=== PATIENT | male | born 1940 | race Hispanic/Latino ===

== ENCOUNTER 2016-10-02 13:33 | Emergency (ER) | payer MEDICARE, BC ==
[2016-10-02 13:52] VITALS: O2SAT 96
[2016-10-02] MEDS ORDERED: Sodium Chloride 0.9% 1,000 ML IV SCH (14:30)
--- NOTE | 2016-10-02 14:33 | C.PDOC ---
History Of Present Illness 76 y/o male presents to the ED with complains of weakness, tiredness and difficulty walking. Pt states he got up this morning feeling normal, gait normal. After lunch, pt reports difficulty walking. Pt denies headache, vision changes or any other complaints. PMHx HIV since 1982, on HAART, low viral load, normal CD4. Denies narcotics nor heroine use/abuse. Time Seen by Provider: 10/02/16 14:19 Chief Complaint (Nursing): Weakness/Neurological Deficit History Per: Patient History/Exam Limitations: no limitations Onset/Duration Of Symptoms: Hrs Current Symptoms Are (Timing): Still Present Fall Associated With With Symptoms: No Severity: Mild Recent travel outside of the [place]: No Past Medical History Reviewed: Historical Data, Nursing Documentation, Vital Signs Vital Signs: Last Vital Signs Temp 97.5 F L 10/02/16 17:35 Pulse 83 10/02/16 17:35 Resp 18 10/02/16 17:35 BP 168/93 H 10/02/16 17:35 Pulse Ox 96 10/02/16 17:35 - Medical History PMH: HIV, TIA Family History: States: Unknown Family Hx - Social History Hx Tobacco Use: No Hx Alcohol Use: No Hx Substance Use: No - Immunization History Hx Tetanus Toxoid Vaccination: No Hx Influenza Vaccination: No Hx Pneumococcal Vaccination: No Review Of Systems Except As Marked, All Systems Reviewed And Found Negative. Constitutional: Positive for: Weakness, Other (tiredness; difficulty walking). Negative for: Fever Eyes: Negative for: Vision Change Neurological: Negative for: Headache Physical Exam - Physical Exam Appears: Non-toxic, No Acute Distress, Other (thin) Skin: Warm, Dry, No Rash Head: Atraumatic, Normacephalic, Other (bitemporal wasting) Eye(s): bilateral: PERRL, EOMI Oral Mucosa: Dry Neck: Normal ROM, Supple Chest: Symmetrical Cardiovascular: Rhythm Regular, No Murmur Respiratory: Normal Breath Sounds, No Rales, No Rhonchi, No Wheezing Gastrointestinal/Abdominal: Soft, No Tenderness, Other (suprapubic tube in place , clean, intact) Extremity: Bilateral: Atraumatic Neurological/Psych: Other (confused, difficulty recalling days, events, doctor' s and medications) ED Course And Treatment - Laboratory Results Result Diagrams: 10/02/16 14:57 10/02/16 14:57 Lab Interpretation: Normal O2 Sat by Pulse Oximetry: 96 (on room air) Pulse Ox Interpretation: Normal - Radiology CXR: Interpreted by Me CXR Interpretation: Yes: No Acute Disease - Other Rad CXR X-Ray: Viewed By Me, Read By Radiologist Interpretation: ADDENDUM: Additionally, please note left apical pleural thickening. [ Addendum Report Added by Lilia Nichols MD at 10/02/2016 16:30:12 ]. HISTORY: lethargy, h/o HIV. COMPARISON: Chest x-ray performed 05/07. TECHNIQUE: Chest, one view. FINDINGS: LUNGS: Mild interstitial prominence with lower lobe predominance may be chronic ; superimposed infection cannot be excluded. Please note that chest x-ray has limited sensitivity for the detection of pulmonary masses. PLEURA: No significant pleural effusion identified. No definite pneumothorax . CARDIOVASCULAR: Enlargement of the cardiomediastinal silhouette. Ectatic aorta. Atherosclerotic calcifications. OSSEOUS STRUCTURES: Degenerative changes. VISUALIZED UPPER ABDOMEN: Unremarkable. OTHER FINDINGS: None. IMPRESSION: Mild interstitial prominence with lower lobe predominance may be chronic ; superimposed infection cannot be excluded. Correlate clinically. Enlargement of the cardiomediastinal silhouette. Ectatic aorta. Atherosclerotic calcifications. - CT Scan/US CT head Other Rad Studies (CT/US): Read By Radiologist, Radiology Report Reviewed CT/US Interpretation: FINDINGS: HEMORRHAGE: No intracranial hemorrhage. BRAIN : Diffuse atrophy with prominence of the ventricles and sulci noted. No mass effect or edema. Moderate scattered periventricular and subcortical white matter hypodensities, which are nonspecific, but often seen with chronic microvascular ischemic disease. Please note that MRI with diffusion imaging is more sensitive in the detection of acute ischemic event. VENTRICLES: No hydrocephalus. CALVARIUM: Unremarkable. PARANASAL SINUSES: Unremarkable as visualized. No significant inflammatory changes. MASTOID AIR CELLS: Unremarkable as visualized. No inflammatory changes. OTHER FINDINGS: None. IMPRESSION: Moderate nonspecific white matter changes as above. Provided history indicates concern for malignant neoplasm ; recommend MRI without and with IV contrast for further evaluation. Progress Note: refused EKG for ?? reason Reevaluation Time: 18:23 Reassessment Condition: Improved (able to stand alone and dress self) Medical Decision Making Medical Decision Making: Plan: CT head, CXR EKG, labs, UA suspect narcotics use vs chronic lethargy w/u neg offered Obs but pt adamantly declined Disposition Doctor Will See Patient In The: Office Counseled Patient/Family Regarding: Studies Performed, Diagnosis - Disposition Disposition: HOME/ ROUTINE Disposition Time: 18:24 Condition: GOOD - Clinical Impression Clinical Impression: Muscle weakness - Scribe Statement The provider has reviewed the documentation as recorded by the Nancy Addison Provider Attestation: All medical record entries made by the Nancy were at my direction and personally dictated by me. I have reviewed the chart and agree that the record accurately reflects my personal performance of the history, physical exam, medical decision making, and the department course for this patient. I have also personally directed, reviewed, and agree with the discharge instructions and disposition.
[2016-10-02 15:03] LABS: BASO % 0.4 % (0.0-2.0); EOS # 0.1 K/uL (0.0-0.7); EOS % 0.7 % (0.0-4.0); HEMATOCRIT 37.7 % (35.0-51.0); LYMPH # 2.4 K/uL (1.0-4.3); LYMPH % 27.1 % (20.0-40.0); MEAN CELL VOLUME 92.3 fL (80.0-94.0); MEAN CORPUSCULAR HEMOGLOBIN 30.4 pg (27.0-31.0); MEAN PLATELET VOLUME 8.8 fL (7.2-11.7); MONO # 0.8 K/uL (0.0-0.8); MONO % 9.2 % (0.0-10.0); RED CELL DISTRIBUTION WIDTH 17.1 % (11.5-14.5); WHITE BLOOD COUNT 8.9 K/uL (4.8-10.8)
[2016-10-02 15:11] LABS: INR 1.4
[2016-10-02 15:12] LABS: CHLORIDE 101 mmol/L (98-107); SODIUM 140 mmol/L (132-148)
[2016-10-02 15:14] LABS: CHOLESTEROL 160 mg/dL (0-199)
[2016-10-02 15:15] LABS: ALKALINE PHOSPHATASE 93 U/L (38-126); ALT/SGPT 21 U/L (21-72); AST/SGOT 62 U/L (17-59); BILIRUBIN,TOTAL 0.4 mg/dL (0.2-1.3); BLOOD UREA NITROGEN 14 mg/dL (9-20); CALCIUM 8.7 mg/dl (8.6-10.4); CARBON DIOXIDE 23 mmol/L (22-30); GFR AFRICAN-AMERICAN > 60; GLUCOSE,RANDOM 124 mg/dL (75-110)
--- NOTE | 2016-10-02 15:22 | CT ---
PROCEDURE: CT HEAD WITHOUT CONTRAST. HISTORY: gait abn, HIV, ? CA. COMPARISON: Brain MRI without contrast performed 05/23/13, noncontrast head CT performed 05/22/13 TECHNIQUE: Axial computed tomography images were obtained through the head/brain without intravenous contrast. Radiation dose: Total exam DLP = 1236.91 mGy-cm. This CT exam was performed using one or more of the following dose reduction techniques: Automated exposure control, adjustment of the mA and/or kV according to patient size, and/or use of iterative reconstruction technique. FINDINGS: HEMORRHAGE: No intracranial hemorrhage. BRAIN: Diffuse atrophy with prominence of the ventricles and sulci noted. No mass effect or edema. Moderate scattered periventricular and subcortical white matter hypodensities, which are nonspecific, but often seen with chronic microvascular ischemic disease. Please note that MRI with diffusion imaging is more sensitive in the detection of acute ischemic event. VENTRICLES: No hydrocephalus. CALVARIUM: Unremarkable. PARANASAL SINUSES: Unremarkable as visualized. No significant inflammatory changes. MASTOID AIR CELLS: Unremarkable as visualized. No inflammatory changes. OTHER FINDINGS: None. IMPRESSION: Moderate nonspecific white matter changes as above. Provided history indicates concern for malignant neoplasm ; recommend MRI without and with IV contrast for further evaluation.
[2016-10-02] MEDS ORDERED: Sodium Chloride 0.9% 1,000 ML ONE (15:30)
--- NOTE | 2016-10-02 16:30 | RAD ---
HISTORY: lethargy, h/o HIV COMPARISON: Chest x-ray performed 09/01/13 TECHNIQUE: Chest, one view. FINDINGS: LUNGS: Mild interstitial prominence with lower lobe predominance may be chronic ; superimposed infection cannot be excluded. Please note that chest x-ray has limited sensitivity for the detection of pulmonary masses. PLEURA: No significant pleural effusion identified. No definite pneumothorax . CARDIOVASCULAR: Enlargement of the cardiomediastinal silhouette. Ectatic aorta. Atherosclerotic calcifications. OSSEOUS STRUCTURES: Degenerative changes. VISUALIZED UPPER ABDOMEN: Unremarkable. OTHER FINDINGS: None. IMPRESSION: Mild interstitial prominence with lower lobe predominance may be chronic ; superimposed infection cannot be excluded. Correlate clinically. Enlargement of the cardiomediastinal silhouette. Ectatic aorta. Atherosclerotic calcifications.
[2016-10-02 17:36] VITALS: BP 168/93; PULSE 83; RESP 18; TEMP 97.5
== END 2016-10-02 18:39 | disposition home or self-care (01) ==
LOC: C.ER 13:33
DX: M62.81 Muscle weakness (generalized) (principal)
CPT/HCPCS: 70450; 71010; 80053; 80061; 83036; 84484; 85025; 85610; 85730; 96360; 96361; 99285; J7040

== ENCOUNTER 2016-11-01 17:24 | Emergency (ER) | payer MEDICARE, BC ==
[2016-11-01 17:43] VITALS: BMI 17.3
[2016-11-01] MEDS ORDERED: Sodium Chloride 0.9% 1,000 ML IV ONE (17:49)
[2016-11-01] MEDS ORDERED: Sodium Chloride 0.9% 1,000 ML ONE (18:08)
--- NOTE | 2016-11-01 18:13 | C.PDOC ---
History Of Present Illness A 76 y/o male comes in the ER c/o suprapubic tenderness and dysuria for 3 days. Pt notes that he had a suprapubic catheter placed by Dr. Smith is chronic indwelling. Pt urinating normally via his penis without difficulty. Pt was instructed by Dr. Smith to come to the ER for cath removal since Dr. Acharya is out of town. Pt denies fever, chills, nausea, vomiting, diarrhea, hematuria, or any other complaints. Time Seen by Provider: 11/01/16 17:44 Chief Complaint (Nursing): Male Genitourinary History Per: Patient History/Exam Limitations: no limitations Onset/Duration Of Symptoms: Days Current Symptoms Are (Timing): Still Present Severity: Mild Associated Symptoms: Urinary Symptoms (Dysuria) Additional History Per: Patient Past Medical History Reviewed: Historical Data, Nursing Documentation, Vital Signs Vital Signs: Last Vital Signs Temp 97.5 F L 11/01/16 17:43 Pulse 65 11/01/16 17:43 Resp 17 11/01/16 17:43 BP 197/79 H 11/01/16 17:43 Pulse Ox 99 11/01/16 19:30 - Medical History PMH: Dementia, HIV, TIA Family History: States: Unknown Family Hx - Social History Hx Tobacco Use: No Hx Alcohol Use: No Hx Substance Use: Yes - Immunization History Hx Tetanus Toxoid Vaccination: No Hx Influenza Vaccination: No Hx Pneumococcal Vaccination: No Review Of Systems Except As Marked, All Systems Reviewed And Found Negative. Constitutional: Negative for: Fever, Chills Gastrointestinal: Positive for: Abdominal Pain (Suprapubic pain and tenderness) . Negative for: Nausea, Vomiting, Diarrhea Genitourinary: Positive for: Dysuria. Negative for: Hematuria Physical Exam - Physical Exam Appears: Non-toxic, No Acute Distress Skin: Warm, Dry Head: Atraumatic, Normacephalic Eye(s): bilateral: Normal Inspection, EOMI Cardiovascular: Rhythm Regular, No Murmur Respiratory: Normal Breath Sounds, No Accessory Muscle Use, No Rales, No Rhonchi , No Wheezing Gastrointestinal/Abdominal: Soft, Tenderness (Suprapubic tenderness ), No Guarding, No Rebound, No Other (Npo fullness) Male Genital: Other (Foul smelling urine) Neurological/Psych: Oriented x3, Normal Speech, Normal Cognition, Normal Motor, No Other (No focal deficit) ED Course And Treatment - Laboratory Results Result Diagrams: 11/01/16 18:24 11/01/16 18:24 Lab Interpretation: Abnormal (UA 326 WBC's) ECG Rhythm: Sinus Rhythm (Normal) ECG Interpretation: Normal Rate From EC O2 Sat by Pulse Oximetry: 99 (RA) Pulse Ox Interpretation: Normal - Radiology CXR: Interpreted by Me CXR Interpretation: Yes: No Acute Disease - Other Rad abd x 2 X-Ray: Interpreted by Me (moderate stool, suprapubic tube in place.) Reevaluation Time: 19:29 Reassessment Condition: Improved Medical Decision Making Medical Decision Making: Impression: 76 y/o c/o suprapubic tenderness and urination pain for 3 days Plans: -EKG -Blood labs -XRay Abd/Pel -Toradol -IV fluids -UA -Reassess and disposition Patient is resting comfortably, abdomen remains soft, and patient is tolerating PO. Patient feels comfortable going home. Patient will be discharged home. 1930: mild UTI, suprapubic cath removed- well tolerated. Started on Keflex- ok to d/c home. Disposition Doctor Will See Patient In The: Office Counseled Patient/Family Regarding: Studies Performed, Diagnosis - Disposition Disposition: HOME/ ROUTINE Disposition Time: 19:30 Condition: GOOD Additional Instructions: Continue Keflex 500 mg twice a day for 7 days Follow-up with Dr. Acharya for re-evaluation when he returns. Prescriptions: Cephalexin [cephalexin] 500 mg PO Q12H #13 cap Instructions: Urinary Tract Infection in Men (ED) - Clinical Impression Clinical Impression: UTI (urinary tract infection), Chronic suprapubic catheter - Scribe Statement The provider has reviewed the documentation as recorded by the Scribe Phuong [email or web address] All medical record entries made by the Scribe were at my direction and personally dictated by me. I have reviewed the chart and agree that the record accurately reflects my personal performance of the history, physical exam, medical decision making, and the department course for this patient. I have also personally directed, reviewed, and agree with the discharge instructions and disposition.
[2016-11-01 18:15] LABS: RBC URINE 13 /hpf (0-3); TRANSITIONAL EPITHIAL < 1 /hpf (0-3); URINE BACTERIA MANY (<OCC); URINE BILIRUBIN NEGATIVE (NEGATIVE); URINE BLOOD 1+ (NEGATIVE); URINE COLOR Yellow (YELLOW); URINE GLUCOSE (UA) NORMAL (Normal); URINE KETONE NEGATIVE (NEGATIVE); URINE LEUKOCYTE ESTERASE 3+ Leu/uL (Negative); URINE PROTEIN 2+ mg/dL (NEGATIVE); URINE UROBILINOGEN NORMAL mg/dL (0.2-1.0); WBC URINE 326 /hpf (0-5)
[2016-11-01 18:28] LABS: BASO % 0.4 % (0.0-2.0); EOS % 0.5 % (0.0-4.0); HEMATOCRIT 43.8 % (35.0-51.0); LYMPH # 2.3 K/uL (1.0-4.3); LYMPH % 26.4 % (20.0-40.0); MEAN CELL VOLUME 92.8 fL (80.0-94.0); MEAN CORPUSCULAR HEMOGLOBIN 30.5 pg (27.0-31.0); MEAN CORPUSCULAR HGB CONC 32.8 g/dL (33.0-37.0); MEAN PLATELET VOLUME 8.9 fL (7.2-11.7); MONO # 0.7 K/uL (0.0-0.8); RED CELL DISTRIBUTION WIDTH 17.4 % (11.5-14.5); WHITE BLOOD COUNT 8.7 K/uL (4.8-10.8)
[2016-11-01 18:36] LABS: CHLORIDE 101 mmol/L (98-107)
[2016-11-01 18:37] LABS: POTASSIUM 3.9 mmol/L (3.6-5.2); SODIUM 138 mmol/L (132-148)
[2016-11-01 18:39] LABS: AST/SGOT 58 U/L (17-59); BILIRUBIN,TOTAL 0.7 mg/dL (0.2-1.3); CARBON DIOXIDE 26 mmol/L (22-30); GFR AFRICAN-AMERICAN > 60; TOTAL PROTEIN 7.7 g/dL (6.3-8.3)
[2016-11-01 18:40] LABS: ALKALINE PHOSPHATASE 112 U/L (38-126); ALT/SGPT 31 U/L (21-72); BLOOD UREA NITROGEN 18 mg/dL (9-20); GLUCOSE,RANDOM 106 mg/dL (75-110)
[2016-11-01] MEDS ORDERED: Bacitracin 500 Units/gm Oint Foilpak UD ONE (19:24)
[2016-11-01 19:55] VITALS: BP 185/89; PULSE 60; RESP 16; TEMP 97.7; O2SAT 97
--- NOTE | 2016-11-02 07:28 | RAD ---
PROCEDURE: Radiographs of the chest and abdomen (obstructive series) HISTORY: abd pain COMPARISON: No prior. TECHNIQUE: AP radiograph of the chest, with upright and supine radiographs of the abdomen. FINDINGS: CHEST: Lungs: No evidence of acute pulmonary disease. Cardiovascular: Prominent size heart. Pleura: No pleural fluid. No pneumothorax. Other findings: None. ABDOMEN AND PELVIS: Bowel: Unremarkable bowel gas pattern. No evidence of mechanical obstruction. Free air: None. Bones: Unremarkable. Other findings: There is suprapubic tube in place. IMPRESSION: Unremarkable radiographs of chest and abdomen. [id number] constipation. No evidence of mechanical bowel obstruction.
--- NOTE | 2016-11-05 10:07 | CARD ---
APPROVED REPORT EKG Measurement Heart [id number] <Conclusion> Normal sinus rhythm Left axis deviation Voltage criteria for left ventricular hypertrophy Abnormal ECG
== END 2016-11-01 20:00 | disposition home or self-care (01) ==
LOC: C.ER 17:24
DX: N39.0 Urinary tract infection, site not specified (principal)
CPT/HCPCS: 74022; 80053; 81001; 83690; 84484; 85025; 87086; 87181; 96361; 96374; 99285; J1885; J7040

== ENCOUNTER 2016-11-02 14:28 | Inpatient (IN) | payer MEDICARE, BC ==
[2016-11-02 14:40] VITALS: BMI 24.3
[2016-11-02] MEDS ORDERED: Cefepime 1 GM in Sodium Chloride 0.9% 50 ML IVPB ONE (14:42)
[2016-11-02] MEDS ORDERED: Moxifloxacin IV 400mg/250ml NS 400 MG/250 ML BAG IV ONE (14:43)
[2016-11-02] MEDS ORDERED: Cefepime 1 GM in Sodium Chloride 0.9% 100 ML IVPB ONE (15:00)
--- NOTE | 2016-11-02 15:04 | C.PDOC ---
History Of Present Illness Patient BIBA for evaluation of being "unresponsive" with difficulty breathing. As per paramedics, patient was breathing shallowly and vomiting, they were concerned for airway protection, intubated him in the field - Rocuronium, Ketamine, Versed given. Patient seen in ED yesterday, diagnosed with mild UTI and discharged home with antibiotics. He has h/o HIV, dementia, TIA. Time Seen by Provider: 11/02/16 14:36 History Per: EMS History/Exam Limitations: clinical condition Onset/Duration Of Symptoms: Other (prior to arrival ) Current Symptoms Are (Timing): Still Present Severity: Severe Past Medical History Reviewed: Historical Data, Nursing Documentation, Vital Signs Vital Signs: Last Vital Signs Temp 99.8 F H 11/03/16 07:30 Pulse 127 H 11/03/16 12:00 Resp 20 11/03/16 12:00 BP 111/76 11/03/16 11:45 Pulse Ox 99 11/03/16 12:00 - Medical History PMH: Dementia, HIV, TIA Family History: States: Other Other Family History: noncontributory - Social History Hx Tobacco Use: No Hx Alcohol Use: No Hx Substance Use: Yes - Immunization History Hx Tetanus Toxoid Vaccination: No Hx Influenza Vaccination: No Hx Pneumococcal Vaccination: No Review Of Systems Review Of Systems: ROS cannot be obtained secondary to pt's inabilty to answer questions. Physical Exam - Physical Exam Appears: Chronically Ill, Other (cachectic) Skin: Dry, Mottled, Other (cool extremities) Head: Atraumatic Eye(s): bilateral: Other (pupils fixed at approx 2-3 mm) Oral Mucosa: Dry, Other (ET tube 8/[address], 23mm at lip) Cardiovascular: Rhythm Regular (tachycardic ) Respiratory: No Rales, No Rhonchi, No Wheezing, Other (assisted ventilations, equal breath sounds B/L) Gastrointestinal/Abdominal: Normal Exam, Bowel Sounds, Soft, No Tenderness, Other (suprapubic catheter stoma without discharge/erythema) Rectal: Other (healed sacral decubitus ulcer) ED Course And Treatment - Laboratory Results Result Diagrams: 11/03/16 04:16 11/03/16 05:28 ECG: Interpreted By Me, Viewed By Me ECG Rhythm: Sinus Tachycardia ECG Interpretation: Abnormal O2 Sat by Pulse Oximetry: 99 (FiO2 100%) Pulse Ox Interpretation: Normal - Radiology CXR: Interpreted by Me, Viewed By Me (ET tube in place, OG tube below diaphragm , no infiltrates) Progress Note: Blood work, CXR, EKG, UA ordered and reviewed. Patient given IV NS bolus, broad spectrum antibiotics. Code sepsis called. After two large IV boluses (+ bolus in the field), patient continues to be hypotensive. Central line attempt made by me, right groin - unsuccessful. Dr. Segovia able to insert left femoral central line, assisted by me. 2 amp bicarb given and levophed drip started. . Family in ED (sister and brother), and aware of patient's critical condition. Sister states he takes/is compliant with HAART meds, but recently has been taking them only once per day due to "difficulty sleeping". Dr. Booker spoken with and came to ED to see patient. - Physician Consult Information Physician Contacted: Max Boykin Outcome Of Conversation: Spoke with Dr. Nubia Boykin (admits for Jhony), he agrees with ICU admission for septic shock. Pending call back from Dr. Booker for ID. Dr. Goldie Smith is urology. Critical Care Time - Critical Care Note Total Time (in mins): 50 Documented critical care: time excludes all time spent performing seperately billable procedures. Disposition - Disposition Disposition: HOSPITALIZED Disposition Time: 17:05 Condition: CRITICAL - Clinical Impression Clinical Impression: Septic shock, UTI (urinary tract infection), Acidosis Decision To Admit - Pt Status Changed To: Hospital Disposition Of: Inpatient - Admit Certification Admit to Inpatient:: After my assessment, the patient will require hospitalization for at least two midnights. This is because of the severity of symptoms shown, intensity of services needed, and/or the medical risk in this patient being treated as an outpatient. - InPatient: Physician Admission Certification: I certify that this patient requires 2 or more midnights of care for the following reason:: see notes - . Bed Request Type: ICU Admitting Physician: Max Boykin Patient Diagnosis: Septic shock, UTI (urinary tract infection), Acidosis
[2016-11-02] MEDS ORDERED: Moxifloxacin IV 400mg/250ml NS 400 MG/250 ML BAG IVPB ONE (15:28)
[2016-11-02 15:31] LABS: BASO % 0.2 % (0.0-2.0); EOS % 0.1 % (0.0-4.0); LYMPH # 2.7 K/uL (1.0-4.3); MEAN CORPUSCULAR HEMOGLOBIN 29.9 pg (27.0-31.0); MEAN PLATELET VOLUME 9.1 fL (7.2-11.7); MONO # 1.3 K/uL (0.0-0.8); MONO % 8.8 % (0.0-10.0); NRBC % 0.3 % (0.0-2.0); RED CELL DISTRIBUTION WIDTH 18.4 % (11.5-14.5)
[2016-11-02 15:44] LABS: MEAN CELL VOLUME 96.5 fL (80.0-94.0); WHITE BLOOD COUNT 15.2 K/uL (4.8-10.8)
[2016-11-02 15:45] LABS: RBC URINE 25 /hpf (0-3); URINE BILIRUBIN NEGATIVE (NEGATIVE); URINE BLOOD 1+ (NEGATIVE); URINE COLOR Amber (YELLOW); URINE GLUCOSE (UA) NORMAL (Normal); URINE KETONE NEGATIVE (NEGATIVE); URINE LEUKOCYTE ESTERASE 2+ Leu/uL (Negative); URINE PROTEIN 2+ mg/dL (NEGATIVE); WBC CLUMPS MANY /hpf; WBC URINE 861 /hpf (0-5)
[2016-11-02 15:50] LABS: POTASSIUM 4.3 mmol/L (3.6-5.2)
[2016-11-02 15:51] LABS: INR 1.8
[2016-11-02 15:52] LABS: ALB/GLOB RATIO 0.8 (1.0-2.1); BILIRUBIN,TOTAL 0.8 mg/dL (0.2-1.3); TOTAL PROTEIN 5.4 g/dL (6.3-8.3)
[2016-11-02 15:53] LABS: CALCIUM 7.1 mg/dl (8.6-10.4); MAGNESIUM 2.5 mg/dL (1.6-2.3); PHOSPHOROUS 8.2 mg/dL (2.5-4.5)
--- NOTE | 2016-11-02 16:01 | RAD ---
HISTORY: Sepsis Patient COMPARISON: Comparison is made to the previous study dated 10/02/2016 FINDINGS: LUNGS: Patient status post intubation. The ET tube is seen at appropriate position. No significant interval change in the lungs noted since the previous exam. PLEURA: No significant pleural effusion identified, no pneumothorax apparent. CARDIOVASCULAR: Normal. OSSEOUS STRUCTURES: No significant abnormalities. VISUALIZED UPPER ABDOMEN: Normal. OTHER FINDINGS: None. IMPRESSION: Appropriate position of the a and NG tube. No significant interval change in the lungs since the previous study.
--- NOTE | 2016-11-02 16:07 | CP.PCM.CON ---
<Erik Morgan - Last Filed: 11/02/16 19:16> History of Present Illness - History of Present Illness History of Present Illness: HPI: Patient is a 76 y/o male, with PMHx of indwelling suprapubic cather, HIV, dementia, and TIA. Patient BIBA for evaluation of being "unresponsive" with difficulty breathing. EMS notes state his sister called 911 because pt was not responding to her. As per paramedics, patient was breathing shallowly and vomiting, they were concerned for airway protection. Pt was intubated in the field. Patient seen in ED yesterday, diagnosed with mild UTI and discharged home with antibiotics. ROS unavailable so information was provided by the family. Family is reporting the suprapubic catheter has been in "since June" and was not removed until yesterday in the ED. PMHx: see above PSHx: Cholecystectomy, TURP (2014), Suprapubic catheter placement (June 2016) Allergies: NKDA Fam Hx: unknown Review of Systems - Review of Systems Systems not reviewed;Unavailable: Intubated Past Patient History - Past Social History Smoking Status: Heavy Smoker > 10 Cigarettes Daily - NEUROLOGICAL Hx Dementia: Yes Hx Transient Ischemic Attacks (TIA): Yes - HEMATOLOGICAL/ONCOLOGICAL Hx Human Immunodeficiency Virus (HIV): Yes - GENITOURINARY/GYNECOLOGICAL Hx Genitourinary Disorders: Yes (SEE COMMENT) Hx Prostate Problems: Yes (SUPRPUBIC DEWITT) - PSYCHIATRIC Hx Substance Use: Yes - ANESTHESIA Hx Anesthesia: No Hx Anesthesia Reactions: No Meds Allergies/Adverse Reactions: Allergies Allergy/AdvReac Type Severity Reaction Status Date / Time No Known Allergies Allergy Verified 11/01/16 17:42 - Medications Medications: Current Medications Vancomycin HCl (Vancomycin 1gm In Normal Saline Addvantage) 250 mls @ 166.667 mls/hr IV STAT STA Stop: 11/02/16 16:11 Sodium Chloride 2,100 ml/ IV (SUPPLIES) 2,100 mls @ 4,354.5 mls/hr IV ONCE ONE PRN Reason: 60 ML/KG/HR Stop: 11/02/16 16:20 Physical Exam - Constitutional Appears: Chronically Ill - Head Exam Head Exam: ATRAUMATIC, NORMAL INSPECTION - Eye Exam Eye Exam: EOMI Pupil Exam: PERRL - ENT Exam ENT Exam: Mucous Membranes Dry Additional comments: ET tube placed - Respiratory Exam Respiratory Exam: NORMAL BREATHING PATTERN. absent: Clear to Auscultation Bilateral - Cardiovascular Exam Cardiovascular Exam: Tachycardia - GI/Abdominal Exam GI & Abdominal Exam: Normal Bowel Sounds, Soft - Extremities Exam Extremities exam: Positive for: normal inspection, pedal pulses present Additional comments: mottling of feet noted - Neurological Exam Neurological exam: Altered - Skin Skin Exam: Dry Additional comments: mottling of feet Results - Vital Signs Recent Vital Signs: Last Vital Signs Temp 101.0 F H 11/02/16 14:48 Pulse 101 H 11/02/16 15:57 Resp 15 11/02/16 15:57 BP 76/46 L 11/02/16 15:57 Pulse Ox 100 11/02/16 15:57 - Labs Result Diagrams: 11/02/16 15:28 11/02/16 15:28 Labs: Laboratory Results - last 24 hr 11/02/16 11/02/16 11/02/16 15:28 15:28 15:28 WBC 15.2 H D RBC 3.94 L Hgb 11.8 L D Hct 38.0 MCV 96.5 H D MCH 29.9 MCHC 31.0 L RDW 18.4 H Plt Count 292 MPV 9.1 Neut % (Auto) 72.9 Lymph % (Auto) 18.0 L [place] % (Auto) 8.8 Eos % (Auto) 0.1 Baso % (Auto) 0.2 Neut # 11.1 H Lymph # 2.7 [place] # 1.3 H Eos # 0.0 Baso # 0.0 PT 20.9 H INR 1.8 APTT 31 Sodium 143 Potassium 4.3 Chloride 111 H Carbon Dioxide 15 L Anion Gap 21 H BUN 28 H Creatinine 2.0 H Est GFR ( Amer) 40 Est GFR (Non-Af Amer) 33 Random Glucose 114 H Calcium 7.1 L Phosphorus 8.2 H Magnesium 2.5 H Total Bilirubin 0.8 AST 259 H D ALT 166 H D Alkaline Phosphatase 83 Total Protein 5.4 L Albumin 2.4 L D Globulin 3.0 Albumin/Globulin Ratio 0.8 L Urine Color Urine Clarity Urine pH Ur Specific [place] Urine Protein Urine Glucose (UA) Urine Ketones Urine Blood Urine Nitrate Urine Bilirubin Urine Urobilinogen Ur Leukocyte Esterase Urine WBC (Auto) Urine RBC (Auto) Urine WBC Clumps (Auto) Ur Squamous Epith Cells 11/02/16 15:28 WBC RBC Hgb Hct MCV MCH MCHC RDW Plt Count MPV Neut % (Auto) Lymph % (Auto) [place] % (Auto) Eos % (Auto) Baso % (Auto) Neut # Lymph # [place] # Eos # Baso # PT INR APTT Sodium Potassium Chloride Carbon Dioxide Anion Gap BUN Creatinine Est GFR ( Amer) Est GFR (Non-Af Amer) Random Glucose Calcium Phosphorus Magnesium Total Bilirubin AST ALT Alkaline Phosphatase Total Protein Albumin Globulin Albumin/Globulin Ratio Urine Color [place] Urine Clarity Hazy Urine pH 6.0 Ur Specific [place] 1.011 Urine Protein 2+ H Urine Glucose (UA) Normal Urine Ketones Negative Urine Blood 1+ H Urine Nitrate Positive H Urine Bilirubin Negative Urine Urobilinogen 4.0 Ur Leukocyte Esterase 2+ H Urine WBC (Auto) 861 H Urine RBC (Auto) 25 H Urine WBC Clumps (Auto) Many H Ur Squamous Epith Cells 4 Assessment & Plan - Assessment and Plan (Free Text) Assessment: Patient is a 76 year male, with PMHx of indwelling suprapubic catheter, HIV, dementia, TIA, who was BIBA for acute respiratory failure. He was intubated in the field. Plan: Neuro: Pt intubated Hx of dementia - Aricept 10mg PO HS Hx of seizure disorder Cardio: Hypotension BP 76/46 on admission Levophed 10 mcg/min 4L NS given in ED Pulm: Pt intubated Vent settings: TV 500, PEEP 5, FiO2 70%, RR 20 CXR (11/02/16): No pleural effusion. No pneumothorax. (see full report). ABG (11/02/16): 6.9 pH - 2 amps of bicarb given GI: NPO Transaminitis AST/ALT 259/166, Alk Phos: 83 Albumin 2.4 /Renal: Hx of indwelling catheter - for hx of BPH - Tamsulosin 0.4mg PO daily UA (11/02/16): LE 2+, Nitrate Positive, Protein 2+, WBC 861, Sq Ep 4 Urine Cx (11/01/16): Gram negative Rogelio - pt seen in ED on 11/01 for UTI, given Cephalexin 500mg PO Q12H Nephro: Dehydration BUN/Cr: 28/2 4L NS Monitor I/Os Heme: Hx of HIV Normal CD4 the last time pt saw Dr. Booker 6 months ago Home meds: cd8 Abacavir-Lamivudine 600/300 PO Daily, Raltegravir 400mg PO BID f/u CD4, CD8 level ID: Septic Shock (Criteria: Tachycardic, Tachypneic, WBC > 16, - believed secondary to UTI ID: Dr. Booker, help appreciated WBC 15.2, no left shift or bands Lactate 4.9 - f/u VBG Merrem 1gm Q12H Cefepime 1 gm IV ONCE Avelox 400mg IV once Vancomycin 1 gm IV once NS x 4L f/u blood culture, urine culture Prophylaxis: DVT: SCDs, GI:Protonix 40mg IV Daily <Samir Segovia P - Last Filed: 11/02/16 21:39> Meds - Medications Medications: Current Medications Norepinephrine Bitartrate 8 mg (/ Sodium Chloride) 258 mls @ 19.35 mls/hr IV .[id number] PRN; Protocol; 10 MCG/MIN PRN Reason: TITRATE PER MD ORDER Last Titration: 11/02/16 18:47 Dose: 9 mcg/min, 17.41 mls/hr Meropenem 1 gm/ Sodium (Chloride) 100 mls @ 100 mls/hr IVPB Q12H TRACEY Last Admin: 11/02/16 20:19 Dose: 100 mls/hr Sodium Bicarbonate 150 meq/ (Dextrose) 1,150 mls @ 200 mls/hr IV .[id number] TRACEY Last Admin: 11/02/16 21:14 Dose: 200 mls/hr Pantoprazole Sodium (Protonix Inj) 40 mg IVP DAILY TRACEY Results - Vital Signs Recent Vital Signs: Last Vital Signs Temp 93.8 F L 11/02/16 18:30 Pulse 100 H 11/02/16 19:50 Resp 20 11/02/16 19:50 BP 113/74 11/02/16 19:31 Pulse Ox 100 11/02/16 19:50 - Labs Result Diagrams: 11/02/16 15:28 11/02/16 20:22 Labs: Laboratory Results - last 24 hr 11/02/16 11/02/16 11/02/16 17:44 18:18 20:18 pO2 51 42 VBG pH 6.92 L* < 6.80 L* VBG pCO2 55 76 H* VBG HCO3 7.0 VBG Total CO2 13.0 L VBG O2 Sat (Calc) 72.0 H 53.7 VBG Base Excess -21.5 L VBG Potassium 3.8 6.0 H Sodium 146.0 144.0 Chloride 121.0 H 110.0 H Glucose 88 118 H Lactate 7.6 H* 12.6 H* Crit Value Called To Er nurse gemma smyth Icu nurse sophia Crit Value Called By Carleen rt Carleen rt Crit Value Read Back Y Y Blood Gas Notified Time 1747 2023 Potassium Carbon Dioxide Anion Gap BUN Creatinine Est GFR ( Amer) Est GFR (Non-Af Amer) Random Glucose Calcium Phosphorus Magnesium Total Bilirubin AST ALT Alkaline Phosphatase Total Creatine Kinase Troponin I Total Protein Albumin Globulin Albumin/Globulin Ratio Venous Blood Potassium 3.8 6.0 H Urine Opiates Screen Negative Urine Methadone Screen Negative Ur Barbiturates Screen Negative Ur Phencyclidine Scrn Negative Ur Amphetamines Screen Negative U Benzodiazepines Scrn Positive U Oth Cocaine Metabols Negative U Cannabinoids Screen Negative 11/02/16 20:22 pO2 VBG pH VBG pCO2 VBG HCO3 VBG Total CO2 VBG O2 Sat (Calc) VBG Base Excess VBG Potassium Sodium 142 Chloride 109 H Glucose Lactate Crit Value Called To Crit Value Called By Crit Value Read Back Blood Gas Notified Time Potassium 5.5 H Carbon Dioxide 13 L Anion Gap 26 H BUN 28 H Creatinine 2.4 H Est GFR ( Amer) 32 Est GFR (Non-Af Amer) 26 Random Glucose 116 H Calcium 7.1 L Phosphorus 11.8 H Magnesium 2.9 H Total Bilirubin 1.0 AST 634 H D ALT 500 H D Alkaline Phosphatase 82 Total Creatine Kinase 2077 H Troponin I 23.4000 H* Total Protein 5.2 L Albumin 2.4 L Globulin 2.8 Albumin/Globulin Ratio 0.8 L Venous Blood Potassium Urine Opiates Screen Urine Methadone Screen Ur Barbiturates Screen Ur Phencyclidine Scrn Ur Amphetamines Screen U Benzodiazepines Scrn U Oth Cocaine Metabols U Cannabinoids Screen Attending/Attestation - Attestation I have personally seen and examined this patient.: Yes I have fully participated in the care of the patient.: Yes I have reviewed all pertinent clinical information: Yes Notes (Text): 11/02/16 21:29 Patient was evaluated with the resident, h/o HIV+ on meds, dementia, urinary retention, suprapubic dewitt removed yesterday, brought in intubated at home, with ketamin and paralyzing agent, unresponsive, hypotension, febrile, ph 6.9, maintained po2, abnormal urine, elevated creat. Assisted Dr. Burrell for left femoral line, with aseptic precautions, of cap, mask, goun, full body drape, under real time usg, femoral artery and vein visualized, catheter introduced with Seldinger's technique, blood was nonpulsatile, dark appearing. All three ports of the cath gave blood and good flow, biopatch applied and cath secured. 11/02/16 21:33
[2016-11-02] MEDS ORDERED: Sodium Bicarbonate (8.4%) 50 Meq Syringe ONE ×2 (16:24→20:46)
[2016-11-02] MEDS ORDERED: Sodium Bicarbonate (8.4%) 50 Meq Syringe IVP ONE ×4 (16:25→23:15)
[2016-11-02] MEDS ORDERED: Meropenem 500 MG in Sodium Chloride 0.9% 100 ML IVPB ONE (18:00)
--- NOTE | 2016-11-02 18:52 | CP.PCM.CON ---
History of Present Illness - History of Present Illness History of Present Illness: 76 yo male pt of dr Nubia stapleton admitted here for sepsis/ septic shock not seen in office for over 6 mos was reportedly seen in ER yest and discharged- I was not notified Hx HIV with normal CD4 on HAART , Seizures, Hep C treated, cirrhosis, ETOH, BPH. S/P suprapbic donato, severe COPD start broad spectrum rx Review of Systems - Review of Systems Systems not reviewed;Unavailable: Altered Mental Status, Intubated - Constitutional Constitutional: absent: As Per HPI, Anorexia, Chills, Daytime Sleepiness, Excessive Sweating, Fatigue, Fever, Frequent Falls, Headache, Increased Appetite , Lethargy, Malaise, Night Sweats, Snoring, Sleep Apnea, Weight Gain, Weight Loss, Weakness, Other - EENT Eyes: absent: As Per HPI, Blind Spots, Blurred Vision, Change in Vision, Decreased Night Vision, Diplopia, Discharge, Dry Eye, Exophthalmos, Floaters, Irritation, Itchy Eyes, Loss of Peripheral Vision, Pain, Photophobia, Requires Corrective Lenses, Sees Flashes, Spots in Vision, Tunnel Vision, Other Visual Disturbances, Loss of Vision, Other Ears: absent: As Per HPI, Decreased Hearing, Ear Discharge, Ear Pain, Tinnitus, Abnormal Hearing, Disequilibrium, Dizziness, Other Nose/Mouth/Throat: absent: As Per HPI, Epistaxis, Nasal Congestion, Nasal Discharge, Nasal Obstruction, Nasal Trauma, Nose Pain, Post Nasal Drip, Sinus Pain, Sinus Pressure, Bleeding Gums, Change in Voice, Dental Pain, Dry Mouth, Dysphagia, Halitosis, Hoarsness, Lip Swelling, Mouth Lesions, Mouth Pain, Odynophagia, Sore Throat, Throat Swelling, Tongue Swelling, Facial Pain, Neck Pain, Neck Mass, Other - Cardiovascular Cardiovascular: absent: As Per HPI, Acrocyanosis, Chest Pain, Chest Pain at Rest , Chest Pain with Activity, Claudication, Diaphoresis, Dyspnea, Dyspnea on Exertion, Edema, Irregular Heart Rhythm, Pain Radiating to Arm/Neck/Jaw, Leg Edema, Leg Ulcers, Lightheadedness, Orthopnea, Palpitations, Paroxysmal Nocturnal Dyspnea, Pedal Edema, Radiating Pain, Rapid Heart Rate, Slow Heart Rate, Syncope, Other - Respiratory Respiratory: absent: As Per HPI, Cough, Dyspnea, Hemoptysis, Dyspnea on Exertion , Wheezing, Snoring, Stridor, Pain on Inspiration, Chest Congestion, Excessive Mucous Production, Change in Mucous Color, Pain with Coughing, Other - Gastrointestinal Gastrointestinal: absent: As Per HPI, Abdominal Pain, Belching, Bloating, Change in Bowel Habits, Change in Stool Character, Coffee Ground Emesis, Constipation, Cramping, Diarrhea, Dyspepsia, Dysphagia, Early Satiety, Excessive Flatus, Fecal Incontinence, Heartburn, Hematemesis, Hematochezia, Loose Stools, Melena, Nausea, Odynophagia, Temesmus, Vomiting, Other - Genitourinary Genitourinary: absent: As Per HPI, Change in Urinary Stream, Difficulty Urinating, Dysuria, Flank Pain, Hematuria, Pyuria, Nocturia, Urinary Incontinence, Urinary Frequency, Urinary Hesitance, Urinary Urgency, Voiding Freq/Small Amts, Freq UTI, Hx Renal/Bladder Calculi, Hx /Renal Surgery, Bladder Distension, Other - Musculoskeletal Musculoskeletal: absent: As Per HPI, Abnormal Gait, Arthralgias, Atrophy, Back Pain, Deformity, Joint Swelling, Limited Range of Motion, Loss of Height, Muscle Cramps, Muscle Weakness, Myalgias, Neck Pain, Numbness, Radiating Pain into Limb, Stiffness, Tingling, Other - Integumentary Integumentary: absent: As Per HPI, Acne, Alopecia, Bleeding Lesions, Change in Hair, Change in Nails, Change in Pigmentation, Changing Lesions, Dry Skin, Erythema, Furuncle, Hirsutism, Lesions, New Lesions, Non-Healing Lesions, Photosensitivity, Pruritus, Rash, Skin Pain, Skin Ulcer, Sores, Striae, Swelling , Unusual Bruising, Wounds, Jaundice, Other - Neurological Neurological: absent: As Per HPI, Abnormal Gait, Abnormal Hearing, Abnormal Movements, Abnormal Speech, Behavioral Changes, Burning Sensations, Confusion, Convulsions, Disequilibrium, Dizziness, Numbness, Focal Weakness, Frequent Falls , Headaches, Lack of Coordination, Loss of Vision, Memory Loss, Paresthesias, Radicular Pain, Restless Legs, Sensory Deficit, Syncope, Tingling, Tremor, Vertigo, Weakness, Other Visual Disturbances, Other - Psychiatric Psychiatric: absent: As Per HPI, Abnormal Sleep Pattern, Anhedonia, Anxiety, Auditory Hallucinations, Behavioral Changes, Change in Appetite, Change in Libido, Confusion, Depression, Difficulty Concentrating, Hallucinations, Homicidal Ideation, Hopelessness, Irritability, Memory Loss, Mood Swings, Panic Attacks, Paranoia, Suicidal Ideation, Visual Hallucinations, Tactile Hallucinations, Other - Endocrine Endocrine: absent: As Per HPI, Change in Body Appearance, Change in Libido, Cold Intolorance, Deepening of Voice, Excessive Sweating, Fatigue, Flushing, Heat Intolorance, Increase in Ring/Shoe/Hat Size, Palpitations, Polydipsia, Polyphagia, Polyuria, Other - Hematologic/Lymphatic Hematologic: absent: As Per HPI, Easy Bleeding, Easy Bruising, Lymphadenopathy, Other Past Patient History - Past Social History Smoking Status: Heavy Smoker > 10 Cigarettes Daily - NEUROLOGICAL Hx Dementia: Yes Hx Transient Ischemic Attacks (TIA): Yes - HEMATOLOGICAL/ONCOLOGICAL Hx Human Immunodeficiency Virus (HIV): Yes - GENITOURINARY/GYNECOLOGICAL Hx Genitourinary Disorders: Yes (SEE COMMENT) Hx Prostate Problems: Yes (SUPRPUBIC DONATO) - PSYCHIATRIC Hx Substance Use: Yes - ANESTHESIA Hx Anesthesia: No Hx Anesthesia Reactions: No Meds Allergies/Adverse Reactions: Allergies Allergy/AdvReac Type Severity Reaction Status Date / Time No Known Allergies Allergy Verified 11/01/16 17:42 - Medications Medications: Current Medications Norepinephrine Bitartrate 8 mg (/ Sodium Chloride) 258 mls @ 19.35 mls/hr IV .[id number] PRN; Protocol; 10 MCG/MIN PRN Reason: TITRATE PER MD ORDER Last Titration: 11/02/16 18:47 Dose: 9 mcg/min, 17.41 mls/hr Physical Exam - Constitutional Appears: Toxic, Cachectic, Chronically Ill - Head Exam Head Exam: ATRAUMATIC, NORMAL INSPECTION, NORMOCEPHALIC - Eye Exam Eye Exam: absent: Scleral icterus - ENT Exam ENT Exam: Mucous Membranes Dry, Normal External Ear Exam - Neck Exam Neck exam: Negative for: Lymphadenopathy, Thyromegaly - Respiratory Exam Respiratory Exam: Decreased Breath Sounds, Rales, Rhonchi - Cardiovascular Exam Cardiovascular Exam: REGULAR RHYTHM, +S1, +S2 - GI/Abdominal Exam GI & Abdominal Exam: Diminished Bowel Sounds, Distended, Soft. absent: Tenderness - Rectal Exam Rectal Exam: Deferred - Extremities Exam Extremities exam: Negative for: calf tenderness, pedal edema, pedal pulses present - Back Exam Back exam: absent: CVA tenderness (L), CVA tenderness (R), paraspinal tenderness - Neurological Exam Neurological exam: Altered - Psychiatric Exam Psychiatric exam: Depressed Results - Vital Signs Recent Vital Signs: Last Vital Signs Temp 96.3 F L 11/02/16 17:26 Pulse 108 H 11/02/16 18:21 Resp 20 11/02/16 18:21 BP 129/81 11/02/16 18:21 Pulse Ox 100 11/02/16 18:21 - Labs Result Diagrams: 11/03/16 04:16 11/03/16 05:28 Labs: Laboratory Results - last 24 hr 11/02/16 18:18 Urine Opiates Screen Negative Urine Methadone Screen Negative Ur Barbiturates Screen Negative Ur Phencyclidine Scrn Negative Ur Amphetamines Screen Negative U Benzodiazepines Scrn Positive U Oth Cocaine Metabols Negative U Cannabinoids Screen Negative Assessment & Plan (1) Respiratory failure Status: Acute (2) Septic shock Status: Acute (3) UTI (urinary tract infection) Status: Acute - Assessment and Plan (Free Text) Assessment: dmitted to ICU for septic shock/resp failure likely urine as source cont broad spectrum IV antibiotics
--- NOTE | 2016-11-02 18:54 | PCM.SEPTIC ---
<Erik Morgan - Last Filed: 11/02/16 19:35> Sepsis Progress Note - Reassessment Type Date of Evaluation: 11/02/16 Time of Evaluation: 17:00 Reassessment Type: Non-invasive reassessment - Non Invasive Reassessment Were the most recent vital sign reviewed: Yes Vital Sign (Latest): Temp Pulse Resp BP Pulse Ox 96.3 F L 108 H 20 129/81 100 11/02/16 17:26 11/02/16 18:21 11/02/16 18:21 11/02/16 18:21 11/02/16 18:21 Cardiovascular: Yes: Tachycardia. No: Chest Non Tender, JVD, Murmur, Friction Rub Respiratory: Yes: Other (intubated) Capillary Refill: Normal (Less than 2 sec) Skin: Warm, Mottled (feet) - Invasive Reassessment (complete 2 of 4) Was a Central Venous Pressure Measurement obtained within 6 Hours after the presentation of septic shock: No Was a central venous oxygen measurement obtained within 6 hours after the presentation of septic shock: No Was a bedside cardiovascular ultrasound performed within 6 hours after the presentation of septic shock: No Was a passive leg raise performed or was a fluid challenge performed within 6 hrs of the initial fluid bolus: Yes Fluid Challenge performed: Yes <Samir Segovia - Last Filed: 11/11/16 19:41> Sepsis Progress Note - Non Invasive Reassessment Vital Sign (Latest): Temp Pulse Resp BP Pulse Ox 99.8 F H 128 H 0 L 152/97 H 99 11/03/16 07:30 11/03/16 13:30 11/03/16 14:00 11/03/16 13:10 11/03/16 14:24
[2016-11-02] MEDS ORDERED: Cefepime IV 1 gm in Dextrose 1 GM/50 ML BAG IVPB ONE (19:00)
[2016-11-02 19:36] LABS: DRAW SITE RB
[2016-11-02 19:37] LABS: ATERIAL BLOOD GAS PEEP 5
[2016-11-02 19:37] LABS: VENOUS BLOOD GAS BASE EXCESS -21.5 mmol/L (0.0-2.0); VENOUS BLOOD GAS PCO2 55 mmHg (40-60); VENOUS BLOOD PH 6.92 (7.32-7.43)
[2016-11-02] MEDS: Meropenem 1 GM in Sodium Chloride 0.9% 100 ML IVPB SCH (20:19)
[2016-11-02 20:24] LABS: VENOUS BLOOD GAS PCO2 76 mmHg (40-60); VENOUS BLOOD PH < 6.80 (7.32-7.43)
[2016-11-02 20:28] LABS: BASO % 0.2 % (0.0-2.0); NRBC % 0.1 % (0.0-2.0); WHITE BLOOD COUNT 16.8 K/uL (4.8-10.8)
[2016-11-02] MEDS ORDERED: Dextrose 50% SYRINGE Inj (50 ml) IV STA (20:32)
[2016-11-02] MEDS ORDERED: (Novolin R) Insulin Human Regular 100 units/ml vial IV ONE (20:33)
[2016-11-02 20:36] LABS: POTASSIUM 5.5 mmol/L (3.6-5.2)
[2016-11-02 20:38] LABS: ALB/GLOB RATIO 0.8 (1.0-2.1); TOTAL PROTEIN 5.2 g/dL (6.3-8.3)
[2016-11-02 20:39] LABS: CALCIUM 7.1 mg/dl (8.6-10.4); MAGNESIUM 2.9 mg/dL (1.6-2.3); PHOSPHOROUS 11.8 mg/dL (2.5-4.5)
[2016-11-02 20:51] LABS: TROPONIN I 23.4 ng/mL (0.00-0.120)
[2016-11-02] MEDS ORDERED: Calcium Chloride 1000 mg/10 ml Syringe IV ONE (20:56)
[2016-11-02] MEDS: DEXTROSE 10% IV SCH (21:14)
[2016-11-02] MEDS: WATER IV SCH (21:14)
[2016-11-02] MEDS: SODIUM BICARBONATE IV SCH (21:14)
[2016-11-02 21:23] LABS: LYMPH # 2.8 K/uL (1.0-4.3); LYMPH % 16.5 % (20.0-40.0); MEAN CELL VOLUME 103.5 fL (80.0-94.0); MEAN CORPUSCULAR HEMOGLOBIN 30.1 pg (27.0-31.0); MEAN CORPUSCULAR HGB CONC 29.1 g/dL (33.0-37.0); MEAN PLATELET VOLUME 9.8 fL (7.2-11.7); MONO # 1.1 K/uL (0.0-0.8); MONO % 6.4 % (0.0-10.0); RED CELL DISTRIBUTION WIDTH 19.8 % (11.5-14.5)
[2016-11-02 21:30] LABS: HEMATOCRIT 40.6 % (35.0-51.0)
--- NOTE | 2016-11-02 21:47 | CP.PCM.PN ---
Subjective - Date & Time of Evaluation Date of Evaluation: 11/02/16 Time of Evaluation: 21:39 - Subjective Subjective: Repeat eval of the ph still lower 6.8, with rising lactate, 4amps bicarb, insulin, dextrose 50%, bicarb drip ordered, but at the same time patient became bradycardic, with wide complex, undetectable pulse. Code blue was called, cpr started few seconds, and while pt receiving above regime and calcium chloride, hr improved and rhythm became narrow complex, pulse about 110/min, bp 140/70. EKG post event also done as troponin was 24, showed suspicion of inf STEMI. Case discussed with Dr. Diaz Gutierres on the phone, oncall for code heart, informing all the presentation, including current events suggested only medical management as much possible, depending on the current course. ASA ordered. Will reevaluate ph, CORCORAN CT ordered earlier, could only be done once ph/vitals/rhythm stable. D/w patient's brother in details at bedside who has been in contact with rest of the family. Objective - Vital Signs/Intake and Output Vital Signs (last 24 hours): Temp Pulse Resp BP Pulse Ox 93.8 F L 100 H 20 113/74 100 11/02/16 18:30 11/02/16 19:50 11/02/16 19:50 11/02/16 19:31 11/02/16 19:50 Intake and Output: 11/02/16 11/03/16 18:59 06:59 Intake Total 266.9 Output Total 20 Balance 246.9 - Medications Medications: Current Medications Norepinephrine Bitartrate 8 mg (/ Sodium Chloride) 258 mls @ 19.35 mls/hr IV .[id number] PRN; Protocol; 10 MCG/MIN PRN Reason: TITRATE PER MD ORDER Last Titration: 11/02/16 18:47 Dose: 9 mcg/min, 17.41 mls/hr Meropenem 1 gm/ Sodium (Chloride) 100 mls @ 100 mls/hr IVPB Q12H TRACEY Last Admin: 11/02/16 20:19 Dose: 100 mls/hr Sodium Bicarbonate 150 meq/ (Dextrose) 1,150 mls @ 200 mls/hr IV .Q5H45M TRACEY Last Admin: 11/02/16 21:14 Dose: 200 mls/hr Pantoprazole Sodium (Protonix Inj) 40 mg IVP DAILY TRACEY - Labs Labs: 11/02/16 20:22 11/02/16 20:22 PT 20.9 SECONDS (9.7-12.2) H 11/02/16 15:28 INR 1.8 11/02/16 15:28 APTT 31 SECONDS (21-34) 11/02/16 15:28
[2016-11-02] MEDS ORDERED: Meropenem 1 GM in Sodium Chloride 0.9% 100 ML IVPB SCH (22:00)
[2016-11-02 22:03] LABS: VENOUS BLOOD GAS BASE EXCESS -20.3 mmol/L (0.0-2.0); VENOUS BLOOD GAS PCO2 95 mmHg (40-60); VENOUS BLOOD PH 6.82 (7.32-7.43)
[2016-11-02 22:48] LABS: ABG MECHANICAL RATE 20; ATERIAL BLOOD GAS PEEP 5; DRAW SITE RBA
[2016-11-02 22:54] LABS: INR 2.6
[2016-11-02] MEDS ORDERED: Albumin Human 25% (12.5 gm/50 ml) IV ONE (23:15)
[2016-11-02] MEDS ORDERED: Dexamethasone 4 mg/1 ml IV STA (23:16)
--- NOTE | 2016-11-03 00:17 | CT ---
EXAM: CT Head Without Intravenous Contrast CLINICAL HISTORY: 76 years old, male; Pain and signs and symptoms; Other: Unresposive; Other: Unresponsive; Patient HX: 11-02-16; Additional info: Unresponsive, shock TECHNIQUE: Axial computed tomography images of the head/brain without intravenous contrast. This CT exam was performed using one or more of the following dose reduction techniques: automated exposure control, adjustment of the mA and/or kV according to patient size, and/or use of iterative reconstruction technique. COMPARISON: No relevant prior studies available. FINDINGS: Brain: Moderate atrophy. No intracranial hemorrhage. No mass. Several scattered foci of decreased attenuation within periventricular/subcortical white matter. Ill-defined decreased attenuation within RIGHT occipital, RIGHT parietal, RIGHT frontal, RIGHT cerebellum, LEFT cerebellum. Loss of peoples-white matter differentiation. Chronic lacunar infarcts within basal ganglia, RIGHT centrum semiovale. Ventricles: No hydrocephalus. Bones/joints: No calvarial fracture. RIGHT nasal bone fracture. Questionable LEFT nasal bone fracture. Soft tissues: Unremarkable. Sinuses: Scattered [id number] the coastal thickening of ethmoid sinuses. Scattered minimal mucosal thickening of remaining sinuses. Mastoid air cells: No mastoid effusion. Orbits: Unremarkable as visualized. Tubes, lines and devices: Endotracheal tube. Orogastric tube. IMPRESSION: 1. Suspect multiple acute/subacute infarctions. Recommend MRI. 2. Incidental/non-acute findings are described above.
[2016-11-03] MEDS ORDERED: Dexamethasone 4 mg/1 ml IV STA (00:37)
--- NOTE | 2016-11-03 00:42 | CT ---
EXAM: CT Chest Without Intravenous Contrast CLINICAL HISTORY: 76 years old, male; Signs and symptoms; Other: Unresposive; Other: Unresponsive; Additional info: Unresponsive, shock TECHNIQUE: Axial computed tomography images of the chest without intravenous contrast. This CT exam was performed using one or more of the following dose reduction techniques: automated exposure control, adjustment of the mA and/or kV according to patient size, and/or use of iterative reconstruction technique. Coronal and sagittal reformatted images were created and reviewed. COMPARISON: No relevant prior studies available. FINDINGS: Limitations: Lack of intravenous contrast. Lungs: Mild emphysematous changes. Patchy peripheral airspace disease within posterior lower lobes. 0.7 x 0.6 x 0.7 cm focal peripheral airspace disease or nodule RIGHT middle lobe. Pleural space: Trace to small RIGHT pleural effusion. Trace LEFT pleural effusion. Heart: No cardiomegaly. Moderate hyperdense pericardial effusion. Bones/joints: No acute fracture. Soft tissues: Unremarkable. Vasculature: Mild peripheral hyperdensity along ascending aorta, descending aorta. Probable minimal peripheral hyperdensity along aortic arch. 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 Moderate atherosclerotic disease of aorta. Lymph nodes: No pathologically enlarged lymph nodes. Tubes, lines and devices: Endotracheal tube. Nasogastric tube. IMPRESSION: 1. 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 2. Hemorrhagic pericardial effusion. 3. Bibasilar atelectasis +/- pneumonia. 4. RML nodule, indeterminate. Followup as clinically warranted. 5. Incidental/non-acute findings are described above. EXAM: CT Abdomen and Pelvis Without Intravenous Contrast CLINICAL HISTORY: 76 years old, male; Signs and symptoms; Other: Unresposive; Other: Unresponsive; Additional info: Unresponsive, shock TECHNIQUE: Axial computed tomography images of the abdomen and pelvis without intravenous contrast. This CT exam was performed using one or more of the following dose reduction techniques: automated exposure control, adjustment of the mA and/or kV according to patient size, and/or use of iterative reconstruction technique. Coronal and sagittal reformatted images were created and reviewed. COMPARISON: No relevant prior studies available. FINDINGS: ABDOMEN: Liver: Mild portal venous gas. Gallbladder and bile ducts: Cholecystectomy. No ductal dilation. Pancreas: [id number] stranding within RIGHT upper quadrant about duodenum/pancreas. No ductal dilation. Spleen: No splenomegaly. Adrenals: No mass. Kidneys and ureters: Mild stranding about kidneys, nonspecific. No renal calculi. Mild pelviectasis of RIGHT kidney. Stomach and bowel: Several scattered diverticula within colon. Segmental areas of mild mural thickening vs underdistention of large bowel. No obstruction. Appendix: No findings to suggest appendicitis. PELVIS: Bladder: Galvan catheter. Collapsed bladder, limiting evaluation. Reproductive: Unremarkable as visualized. ABDOMEN and PELVIS: Intraperitoneal space: No significant fluid collection. No free air. Bones/joints: Degenerative changes of spine. No acute fracture. Soft tissues: Unremarkable. Vasculature: Tiny focus of air within or adjacent to IVC, axial image 84. Small amount of air within nondependent IVC. Moderate atherosclerotic disease of aorta. Multifocal aneurysmal dilatation of abdominal aorta, up to 2.5 cm. Mild ectasia of common iliac arteries. Tiny focus of air adjacent to common femoral vein/artery, possibly intravascular. Lymph nodes: No pathologically enlarged lymph nodes. Tubes, lines and devices: LEFT femoral catheter. IMPRESSION: 1. Stranding within RIGHT upper quadrant, possibly related to duodenitis and/or pancreatitis. Clinical correlation is needed. 2. Portal venous gas, indeterminate etiology. 3. Small focus of air within or adjacent to IVC. 4. Mild colitis versus underdistention. Clinical correlation is needed. 5. Incidental/non-acute findings are described above.
[2016-11-03] MEDS ORDERED: Albumin Human 25% (12.5 gm/50 ml) IV ONE (00:45)
[2016-11-03] MEDS ORDERED: DEXTROSE 10% IV ONE (01:30)
[2016-11-03] MEDS ORDERED: SODIUM BICARBONATE IV ONE (01:30)
[2016-11-03] MEDS ORDERED: WATER IV ONE (01:30)
[2016-11-03] MEDS: DEXTROSE 10% IV SCH ×2 (02:18→04:48)
[2016-11-03] MEDS: WATER IV SCH ×2 (02:18→04:48)
[2016-11-03] MEDS: SODIUM BICARBONATE IV SCH ×2 (02:18→04:48)
--- NOTE | 2016-11-03 02:26 | CP.PCM.PN ---
Subjective - Date & Time of Evaluation Date of Evaluation: 11/03/16 Time of Evaluation: 02:11 - Subjective Subjective: Patient's severe acidosis, and lactic acid levels had not been responding despite fluid resuscitation, pressor, abx. Patient was taken of [facility] CT after d/ w sister. CT head shows multiple new infarcts, not present on 10/[address] showed dissection of the aortic arch with hemorrhagic pericardial effusion, b/l atelectesis with suspicion of pna Abd CT showed air in biliary tree, epigastric fat stranding Clinically patient has been unresponsive since arrival, with RR not above the vent, no gag, no corneal, conjunctival, pupliary reflex, initially thought form inducing agents but unchanged about 12 hr of arrival. Case d/w Dr. Reeves, who advised to d/w [facility] as tertiary center. Spoke to the cardio -thoracic fellow who discussed with CT surgeon chain builder loom control Dr Pro, mentioned patient is not the candidate for invasive procedure due to poor mental stats, unstable transfer, could be called again if MS improves and stable to transfer, will inform family about the final CT findings and above discussion. Objective - Vital Signs/Intake and Output Vital Signs (last 24 hours): Temp Pulse Resp BP Pulse Ox 97.2 F L 104 H 20 103/66 100 11/02/16 20:00 11/03/16 01:09 11/03/16 01:09 11/03/16 01:09 11/03/16 01:09 Intake and Output: 11/02/16 11/03/16 18:59 06:59 Intake Total 266.9 Output Total 20 Balance 246.9 - Medications Medications: Current Medications Norepinephrine Bitartrate 8 mg (/ Sodium Chloride) 258 mls @ 19.35 mls/hr IV .[id number] PRN; Protocol; 10 MCG/MIN PRN Reason: TITRATE PER MD ORDER Last Titration: 11/02/16 18:47 Dose: 9 mcg/min, 17.41 mls/hr Meropenem 1 gm/ Sodium (Chloride) 100 mls @ 100 mls/hr IVPB Q12H [facility] [place] Last Admin: 11/02/16 20:19 Dose: 100 mls/hr Sodium Bicarbonate 150 meq/ (Dextrose) 1,150 mls @ 200 mls/hr IV .[id number] [facility] [place] Last Admin: 11/02/16 21:14 Dose: 200 mls/hr Sodium Bicarbonate 150 meq/ (Dextrose) 1,150 mls @ 1,150 mls/hr IV .Q1H ONE Stop: 11/03/16 02:29 Last Admin: 11/03/16 01:27 Dose: 1,150 mls/hr Pantoprazole Sodium (Protonix Inj) 40 mg IVP DAILY TRACEY - Labs Labs: 11/02/16 20:22 11/02/16 20:22 PT 30.2 SECONDS (9.7-12.2) H* D 11/02/16 22:36 INR 2.6 D 11/02/16 22:36 APTT 50 SECONDS (21-34) H D 11/02/16 22:36
[2016-11-03 04:20] LABS: HEMATOCRIT 34.9 % (35.0-51.0); MONO # 0.4 K/uL (0.0-0.8)
[2016-11-03 04:26] LABS: INR 3.3
[2016-11-03 04:27] LABS: ABG MECHANICAL RATE 20; ARTERIAL BLOOD HGB O2 SAT 96.2 % (95.0-98.0); ATERIAL BLOOD GAS PEEP 5; CARBOXYHEMOGLOBIN 1.1 % (0.5-1.5); DRAW SITE RB; HHB 1.8 % (0.0-5.0); METHEMOGLOBIN 0.9 % (0.0-3.0)
[2016-11-03 04:42] LABS: BASO % 0.2 % (0.0-2.0); LYMPH # 1.4 K/uL (1.0-4.3); LYMPH % 15.6 % (20.0-40.0); MEAN CORPUSCULAR HEMOGLOBIN 30.3 pg (27.0-31.0); MEAN CORPUSCULAR HGB CONC 30.1 g/dL (33.0-37.0); MONO % 4.9 % (0.0-10.0); NRBC % 0.6 % (0.0-2.0); RED CELL DISTRIBUTION WIDTH 18.9 % (11.5-14.5)
[2016-11-03 04:44] LABS: MEAN CELL VOLUME 100.8 fL (80.0-94.0)
[2016-11-03 06:24] LABS: POTASSIUM 4.7 mmol/L (3.6-5.2)
[2016-11-03 06:25] LABS: BILIRUBIN,TOTAL 1.1 mg/dL (0.2-1.3); CALCIUM 6.5 mg/dl (8.6-10.4); MAGNESIUM 2.6 mg/dL (1.6-2.3); PHOSPHOROUS 10.2 mg/dL (2.5-4.5); TOTAL PROTEIN 4.4 g/dL (6.3-8.3)
[2016-11-03] MEDS ORDERED: SODIUM BICARBONATE IV SCH ×2 (07:00→08:00)
[2016-11-03] MEDS ORDERED: WATER IV SCH ×2 (07:00→08:00)
[2016-11-03] MEDS ORDERED: DEXTROSE IV SCH (07:00)
[2016-11-03] MEDS ORDERED: (Novolin R) Insulin Human Regular 100 units/ml vial IV ONE ×2 (07:01→09:15)
[2016-11-03] MEDS ORDERED: DEXTROSE 5% IV SCH (08:00)
[2016-11-03] MEDS: Meropenem 1 GM in Sodium Chloride 0.9% 100 ML IVPB SCH (08:29)
[2016-11-03 08:37] LABS: POTASSIUM 4.4 mmol/L (3.6-5.2)
--- NOTE | 2016-11-03 09:11 | RAD ---
HISTORY: intubated COMPARISON: Comparison is made to 11/02/2016 FINDINGS: LUNGS: No significant interval change in the lungs noted since the previous exam. The ET tube is seen at appropriate position P PLEURA: No significant pleural effusion identified, no pneumothorax apparent. CARDIOVASCULAR: Cardiomegaly is again seen. OSSEOUS STRUCTURES: No significant abnormalities. VISUALIZED UPPER ABDOMEN: NG tube seen extending to the stomach. OTHER FINDINGS: None. IMPRESSION: No significant interval change in the lungs. Appropriate position of the support devices.
[2016-11-03] MEDS ORDERED: Sodium Bicarbonate (8.4%) 50 Meq Syringe IVP ONE (09:15)
[2016-11-03] MEDS ORDERED: Lactated Ringer's 1,000 ML IV ONE (09:15)
[2016-11-03] MEDS: (Novolin R) Insulin Human Regular 100 units/ml vial SC SCH ×2 (09:29→13:00)
[2016-11-03 09:32] LABS: BILIRUBIN,TOTAL 1.1 mg/dL (0.2-1.3); CALCIUM 6.5 mg/dl (8.6-10.4); TOTAL PROTEIN 4.4 g/dL (6.3-8.3)
[2016-11-03 10:56] VITALS: TEMP 99.8; O2SAT 99
--- NOTE | 2016-11-03 10:56 | CP.PCM.PN ---
Subjective - Date & Time of Evaluation Date of Evaluation: 11/03/16 Time of Evaluation: 10:53 - Subjective Subjective: CONDITION REMAINS POOR. INTUBATED. SEPTIC. HYPOTENSIVE ON VASOPRESSORS. RENAL INSUFFICIENCY. UNRESPONSIVE. ACIDOTIC. Objective - Vital Signs/Intake and Output Vital Signs (last 24 hours): Temp Pulse Resp BP Pulse Ox 98.7 F 117 H 20 107/72 100 11/03/16 06:00 11/03/16 07:24 11/03/16 07:24 11/03/16 07:24 11/03/16 07:24 Intake and Output: 11/03/16 11/03/16 06:59 18:59 Intake Total 3547.6 250 Output Total 150 Balance 3397.6 250 - Medications Medications: Current Medications Norepinephrine Bitartrate 8 mg (/ Sodium Chloride) 258 mls @ 19.35 mls/hr IV .[id number] PRN; Protocol; 10 MCG/MIN PRN Reason: TITRATE PER MD ORDER Last Admin: 11/03/16 07:24 Dose: 18 mcg/min, 34.83 mls/hr Meropenem 1 gm/ Sodium (Chloride) 100 mls @ 100 mls/hr IVPB Q12H [facility] Last Admin: 11/03/16 08:29 Dose: 100 mls/hr Sodium Bicarbonate 300 meq/ (Dextrose) 1,000 mls @ 150 mls/hr IV .Q6H40M [facility] Last Admin: 11/03/16 09:00 Dose: 150 mls/hr Vasopressin 40 units/ Sodium (Chloride) 40 mls @ 2.4 mls/hr IV .[id number] [facility]ACE[facility]; 0.04 UNITS/MIN PRN Reason: Protocol Insulin Glargine (Lantus) 10 unit SC HS [facility] Insulin Human Regular (Novolin R) 0 unit SC Q6 [facility] PRN Reason: Protocol Last Admin: 11/03/16 09:29 Dose: 12 unit Pantoprazole Sodium (Protonix Inj) 40 mg IVP DAILY [facility] Last Admin: 11/03/16 09:24 Dose: 40 mg Peppermint (Peppermint Spirits) 10 ml NA Q4H [facility] - Labs Labs: 11/03/16 04:16 11/03/16 05:28 PT 38.8 SECONDS (9.7-12.2) H* D 11/03/16 04:16 INR 3.3 11/03/16 04:16 APTT 39 SECONDS (21-34) H D 11/03/16 04:16 - Constitutional Appears: Toxic, In Acute Distress - Eye Exam Eye Exam: Scleral icterus - ENT Exam ENT Exam: Mucous Membranes Dry - Respiratory Exam Respiratory Exam: Clear to Ausculation Bilateral - Cardiovascular Exam Cardiovascular Exam: Tachycardia, +S1, +S2 - GI/Abdominal Exam GI & Abdominal Exam: Soft, Normal Bowel Sounds - Neurological Exam Neurological Exam: absent: Alert Additional comments: ON RESPIRATOR. Assessment and Plan - Assessment and Plan (Free Text) Assessment: SEPTIC SHOCK. UTI. R/O DIC. RESP FAILURE. ACUTE RENAL FAILURE. Plan: SUPPORTIVE CARE. CT PRESENT MANAGEMENT.
[2016-11-03 12:13] LABS: ABG ALLEN TEST POS; ABG MECHANICAL RATE 16; ATERIAL BLOOD GAS PEEP 5; DRAW SITE LRA
[2016-11-03] MEDS: Peppermint Spirits 30 ml Liq SCH (13:05)
[2016-11-03] MEDS ORDERED: Calcium Chloride 1000 mg/10 ml Syringe IV ONE (13:10)
--- NOTE | 2016-11-03 14:03 | CP.CCUPN ---
CCU Subjective - Physician Review Events Since Last Encounter (Free Text): 11/03/16 14:01 Patient seen and examined in am. Unstable on high dose pressors, continues to be acidotic despite bicarbonate pushes. Initial labs revealed metabolic acidosis , not clearing lactate, very low UO. Neurological exam very poor, no gag, no cough, pupils no reactive to light, no corneal reflex, no response to noxious stimuli. Skin mottled. Abdomen distended, rooms smells fecaloid, OG tube material brown and looks fecaloid. Aneurysmal dilation of ascending aorta, mild pericardial effusion. CT scan of the chest/abdo/pelvis has shows bilateral pneumonia (not seen on x- ray), urine dirty. CT head acute/subactue strokes. coags elevated, platelets coming down, most likely on dic. troponins elevated. Started patient on bicarbonate drip, pH normalized, added vasopressin. Desimpacted patietn, lots of stool, most likely aspirated material fecaloid and resulted in bilateral pneumonia, could there be an acute component of actue strokes, no vascular intervention for aortic aneurysmal dilation. Please see Dr. Segovia note. Orderd ffp to reverse INR, aded new pressors, started bicarbonate drip. No asa, no statins for now. Codded after 1 pm again (coded early am around 3 am). Rhythm PEA, pronounced at 13:58. Spoke to her sister, Jazmín who came to bedside. Critical care time 1 hour CCU Objective - Vital Signs / Intake & Output Vital Signs (Last 4 hours): Vital Signs Pulse Resp BP Pulse Ox 11/03/16 12:00 127 H 20 99 11/03/16 11:45 125 H 19 111/76 100 11/03/16 11:30 125 H 20 99 11/03/16 11:10 123 H 19 111/76 99 11/03/16 11:00 123 H 20 99 11/03/16 10:30 122 H 19 99 11/03/16 10:10 121 H 19 100/71 99 Intake and Output (Last 8hrs): Intake & Output 11/02/16 11/03/16 11/03/16 22:59 06:59 14:59 Intake Total 867.6 2680.0 2366.6 Output Total 60 90 35 Balance 807.6 2590.0 2331.6 Weight 141 lb 10.88 oz Intake: IV 448 Intake, IV Amount 867.6 2680.0 1918.6 Left Distal Port Femoral 67.6 180.0 168.6 Left Medial Port Femoral 337 471 6121 Left Proximal Port 400 2400 650 Femoral Oral 0 0 0 Output: Urine 60 90 35 Urethral (Galvan) 60 90 35 Other: # Bowel Movements 0 - Medications Active Medications: Active Medications Generic Name Dose Route Start Last Admin Trade Name Freq PRN Reason Stop Dose Admin Norepinephrine Bitartrate 8 mg 258 mls @ 19.35 mls/hr 11/02/16 17:03 12:00 / Sodium Chloride IV 15 mcg/min .[id number] PRN 29.02 mls/hr TITRATE PER MD ORDER Titration Protocol 10 MCG/MIN Meropenem 1 gm/ Sodium 100 mls @ 100 mls/hr 11/02/16 20:00 11/03/16 08:29 Chloride IVPB 100 mls/hr Q12H TRACEY Administration Sodium Bicarbonate 300 meq/ 1,000 mls @ 150 mls/hr 11/03/16 08:00 11/03/16 09 :00 Dextrose IV 150 mls/hr .[id number] TRACEY Administration Vasopressin 40 units/ Sodium 40 mls @ 2.4 mls/hr 11/03/16 10:45 11/03/16 11: 45 Chloride IV 0.04 units/min .[id number] TRACEY 2.4 mls/hr Protocol Administration 0.04 UNITS/MIN Insulin Glargine 10 unit 11/03/16 22:00 Lantus SC HS TRACEY Insulin Human Regular 0 unit 11/03/16 08:45 11/03/16 13:00 Novolin R SC 4 unit Q6 TRACEY Administration Protocol Pantoprazole Sodium 40 mg 11/03/16 10:00 11/03/16 09:24 Protonix Inj IVP 40 mg DAILY TRACEY Administration Peppermint 10 ml 11/03/16 08:45 11/03/16 13:05 Peppermint Spirits NA 10 ml Q4H TRACEY Administration - Patient Studies Lab Studies: Lab Studies 11/03/16 11/03/16 11/03/16 Range/Units 12:08 07:50 05:28 WBC (4.8-10.8) K/uL RBC (4.40-5.90) Mil/uL Hgb (12.0-18.0) g/dL Hct (35.0-51.0) % MCV (80.0-94.0) fL MCH (27.0-31.0) pg MCHC (33.0-37.0) g/dL RDW (11.5-14.5) % Plt Count (130-400) K/uL MPV (7.2-11.7) fL Neut % (Auto) (50.0-75.0) % Lymph % (Auto) (20.0-40.0) % Laurel % (Auto) (0.0-10.0) % Eos % (Auto) (0.0-4.0) % Baso % (Auto) (0.0-2.0) % Neut # (1.8-7.0) K/uL Lymph # (1.0-4.3) K/uL Laurel # (0.0-0.8) K/uL Eos # (0.0-0.7) K/uL Baso # (0.0-0.2) K/uL PT (9.7-12.2) SECONDS INR APTT (21-34) SECONDS Puncture Site Lra pCO2 45 (35-45) mm/Hg pO2 116 H (30-55) mm/Hg HCO3 30.0 H (21-28) mmol/L ABG pH 7.45 (7.35-7.45) ABG Total CO2 32.7 H (22-28) mmol/L ABG O2 Saturation 98.2 H (95-98) % ABG Base Excess 6.4 H (-2.0-3.0) mmol/L ABG Hemoglobin (11.7-17.4) g/dL ABG Carboxyhemoglobin (0.5-1.5) % POC ABG HHb (Measured) (0.0-5.0) % ABG Methemoglobin (0.0-3.0) % Andrew Test Pos ABG Potassium 4.3 (3.6-5.2) mmol/L VBG pH (7.32-7.43) VBG pCO2 (40-60) mmHg VBG HCO3 mmol/L VBG Total CO2 (22-28) mmol/L VBG O2 Sat (Calc) (40-65) % VBG Base Excess (0.0-2.0) mmol/L VBG Potassium (3.6-5.2) mmol/L A-a O2 Difference 220.0 mm/Hg Respiratory Index 1.9 Hgb O2 Saturation (95.0-98.0) % Sodium 153.0 H 145 (132-148) mmol/l Chloride 108.0 H 99 (98-107) mmol/L Glucose 230 H (75-110) mg/dl Lactate 13.0 H* (0.7-2.1) mmol/L Mechanical Rate 16 FiO2 55.0 % Tidal Volume 550 PEEP 5 Crit Value Called To Dr torrez Crit Value Called By Dagoberto honeycutt tube operator Crit Value Read Back Y Blood Gas Notified Time 1211 Potassium 4.7 (3.6-5.2) mmol/L Carbon Dioxide 21 L (22-30) mmol/L Anion Gap 30 H (10-20) BUN 34 H (9-20) mg/dL Creatinine 2.3 H (0.8-1.5) MG/DL Est GFR ( Amer) 34 Est GFR (Non-Af Amer) 28 POC Glucose (mg/dL) 436 H* (65-110) mg/dL Random Glucose 498 H* (75-110) mg/dL Calcium 6.5 L (8.6-10.4) mg/dl Phosphorus 10.2 H (2.5-4.5) mg/dL Magnesium 2.6 H (1.6-2.3) mg/dL Total Bilirubin 1.1 (0.2-1.3) mg/dL AST 6143 H (17-59) U/L ALT 4053 H (21-72) U/L Alkaline Phosphatase 79 (38-126) U/L Total Creatine Kinase 1543 H (55-170) U/L CK-MB (Mass) 24.1 H Troponin I (0.00-0.120) ng/mL Troponin I, Quant 16.8000 H* Total Protein 4.4 L (6.3-8.3) g/dL Albumin 2.2 L (3.5-5.0) g/dL Globulin 2.2 (2.2-3.9) gm/dL Albumin/Globulin Ratio 1.0 (1.0-2.1) Arterial Blood Potassium 4.3 (3.6-5.2) mmol/L Venous Blood Potassium (3.6-5.2) mmol/L Urine Opiates Screen (NEGATIVE) Urine Methadone Screen (NEGATIVE) Ur Barbiturates Screen (NEGATIVE) Ur Phencyclidine Scrn (NEGATIVE) Ur Amphetamines Screen (NEGATIVE) U Benzodiazepines Scrn (NEGATIVE) U Oth Cocaine Metabols (NEGATIVE) U Cannabinoids Screen (NEGATIVE) 11/03/16 11/03/16 11/03/16 Range/Units 04:46 04:20 04:16 WBC (4.8-10.8) K/uL RBC (4.40-5.90) Mil/uL Hgb (12.0-18.0) g/dL Hct (35.0-51.0) % MCV (80.0-94.0) fL MCH (27.0-31.0) pg MCHC (33.0-37.0) g/dL RDW (11.5-14.5) % Plt Count (130-400) K/uL MPV (7.2-11.7) fL Neut % (Auto) (50.0-75.0) % Lymph % (Auto) (20.0-40.0) % Laurel % (Auto) (0.0-10.0) % Eos % (Auto) (0.0-4.0) % Baso % (Auto) (0.0-2.0) % Neut # (1.8-7.0) K/uL Lymph # (1.0-4.3) K/uL Laurel # (0.0-0.8) K/uL Eos # (0.0-0.7) K/uL Baso # (0.0-0.2) K/uL PT 38.8 H* D (9.7-12.2) SECONDS INR 3.3 APTT 39 H D (21-34) SECONDS Puncture Site Rb pCO2 49 H (35-45) mm/Hg pO2 113 H (30-55) mm/Hg HCO3 16.9 L (21-28) mmol/L ABG pH 7.17 L* (7.35-7.45) ABG Total CO2 19.4 L (22-28) mmol/L ABG O2 Saturation 98.2 H (95-98) % ABG Base Excess -10.3 L (-2.0-3.0) mmol/L ABG Hemoglobin 10.5 L (11.7-17.4) g/dL ABG Carboxyhemoglobin 1.1 (0.5-1.5) % POC ABG HHb (Measured) 1.8 (0.0-5.0) % ABG Methemoglobin 0.9 (0.0-3.0) % Andrew Test Na ABG Potassium (3.6-5.2) mmol/L VBG pH (7.32-7.43) VBG pCO2 (40-60) mmHg VBG HCO3 mmol/L VBG Total CO2 (22-28) mmol/L VBG O2 Sat (Calc) (40-65) % VBG Base Excess (0.0-2.0) mmol/L VBG Potassium (3.6-5.2) mmol/L A-a O2 Difference 325.0 mm/Hg Respiratory Index 2.9 Hgb O2 Saturation 96.2 (95.0-98.0) % Sodium 145 (132-148) mmol/l Chloride 98 (98-107) mmol/L Glucose (75-110) mg/dl Lactate (0.7-2.1) mmol/L Mechanical Rate 20 FiO2 70.0 % Tidal Volume 500 PEEP 5 Crit Value Called To Daisy rao/rn concurrent review Crit Value Called By Pasha lamas/rt Crit Value Read Back Y Blood Gas Notified Time 430 Potassium 4.4 (3.6-5.2) mmol/L Carbon Dioxide 21 L (22-30) mmol/L Anion Gap 30 H (10-20) BUN 34 H (9-20) mg/dL Creatinine 2.4 H (0.8-1.5) MG/DL Est GFR ( Amer) 32 Est GFR (Non-Af Amer) 26 POC Glucose (mg/dL) (65-110) mg/dL Random Glucose 502 H* D (75-110) mg/dL Calcium 6.5 L (8.6-10.4) mg/dl Phosphorus (2.5-4.5) mg/dL Magnesium (1.6-2.3) mg/dL Total Bilirubin 1.1 (0.2-1.3) mg/dL AST 5409 H (17-59) U/L ALT 3745 H (21-72) U/L Alkaline Phosphatase 78 (38-126) U/L Total Creatine Kinase (55-170) U/L CK-MB (Mass) Troponin I (0.00-0.120) ng/mL Troponin I, Quant Total Protein 4.4 L (6.3-8.3) g/dL Albumin 2.2 L (3.5-5.0) g/dL Globulin 2.2 (2.2-3.9) gm/dL Albumin/Globulin Ratio 1.0 (1.0-2.1) Arterial Blood Potassium (3.6-5.2) mmol/L Venous Blood Potassium (3.6-5.2) mmol/L Urine Opiates Screen (NEGATIVE) Urine Methadone Screen (NEGATIVE) Ur Barbiturates Screen (NEGATIVE) Ur Phencyclidine Scrn (NEGATIVE) Ur Amphetamines Screen (NEGATIVE) U Benzodiazepines Scrn (NEGATIVE) U Oth Cocaine Metabols (NEGATIVE) U Cannabinoids Screen (NEGATIVE) 11/03/16 11/03/16 11/02/16 Range/Units 04:16 04:16 22:40 WBC 9.0 (4.8-10.8) K/uL RBC 3.46 L (4.40-5.90) Mil/uL Hgb 10.5 L (12.0-18.0) g/dL Hct 34.9 L (35.0-51.0) % MCV 100.8 H D (80.0-94.0) fL MCH 30.3 (27.0-31.0) pg MCHC 30.1 L (33.0-37.0) g/dL RDW 18.9 H (11.5-14.5) % Plt Count 86 L D (130-400) K/uL MPV 10.0 (7.2-11.7) fL Neut % (Auto) 79.3 H (50.0-75.0) % Lymph % (Auto) 15.6 L (20.0-40.0) % Laurel % (Auto) 4.9 (0.0-10.0) % Eos % (Auto) 0.0 (0.0-4.0) % Baso % (Auto) 0.2 (0.0-2.0) % Neut # 7.2 H (1.8-7.0) K/uL Lymph # 1.4 (1.0-4.3) K/uL Laurel # 0.4 (0.0-0.8) K/uL Eos # 0.0 (0.0-0.7) K/uL Baso # 0.0 (0.0-0.2) K/uL PT (9.7-12.2) SECONDS INR APTT (21-34) SECONDS Puncture Site Rba pCO2 50 H (35-45) mm/Hg pO2 280 H (30-55) mm/Hg HCO3 11.3 L (21-28) mmol/L ABG pH 7.03 L* (7.35-7.45) ABG Total CO2 14.7 L (22-28) mmol/L ABG O2 Saturation 99.5 H (95-98) % ABG Base Excess -17.5 L (-2.0-3.0) mmol/L ABG Hemoglobin (11.7-17.4) g/dL ABG Carboxyhemoglobin (0.5-1.5) % POC ABG HHb (Measured) (0.0-5.0) % ABG Methemoglobin (0.0-3.0) % Andrew Test N/a ABG Potassium 5.0 (3.6-5.2) mmol/L VBG pH (7.32-7.43) VBG pCO2 (40-60) mmHg VBG HCO3 mmol/L VBG Total CO2 (22-28) mmol/L VBG O2 Sat (Calc) (40-65) % VBG Base Excess (0.0-2.0) mmol/L VBG Potassium (3.6-5.2) mmol/L A-a O2 Difference 157.0 mm/Hg Respiratory Index 0.6 Hgb O2 Saturation (95.0-98.0) % Sodium Cancelled 149.0 H (132-148) mmol/l Chloride Cancelled 110.0 H (98-107) mmol/L Glucose 297 H (75-110) mg/dl Lactate 15.6 H* (0.7-2.1) mmol/L Mechanical Rate 20 FiO2 70.0 % Tidal Volume 500 PEEP 5 Crit Value Called To Dr. keswani Crit Value Called By Carleen tadeo Crit Value Read Back Y Blood Gas Notified Time 2248 Potassium Cancelled (3.6-5.2) mmol/L Carbon Dioxide Cancelled (22-30) mmol/L Anion Gap Cancelled (10-20) BUN Cancelled (9-20) mg/dL Creatinine Cancelled (0.8-1.5) MG/DL Est GFR ( Amer) Cancelled Est GFR (Non-Af Amer) Cancelled POC Glucose (mg/dL) (65-110) mg/dL Random Glucose Cancelled (75-110) mg/dL Calcium Cancelled (8.6-10.4) mg/dl Phosphorus Cancelled (2.5-4.5) mg/dL Magnesium Cancelled (1.6-2.3) mg/dL Total Bilirubin Cancelled (0.2-1.3) mg/dL AST Cancelled (17-59) U/L ALT Cancelled (21-72) U/L Alkaline Phosphatase Cancelled (38-126) U/L Total Creatine Kinase Cancelled (55-170) U/L CK-MB (Mass) Cancelled Troponin I (0.00-0.120) ng/mL Troponin I, Quant Cancelled Total Protein Cancelled (6.3-8.3) g/dL Albumin Cancelled (3.5-5.0) g/dL Globulin Cancelled (2.2-3.9) gm/dL Albumin/Globulin Ratio Cancelled (1.0-2.1) Arterial Blood Potassium 5.0 (3.6-5.2) mmol/L Venous Blood Potassium (3.6-5.2) mmol/L Urine Opiates Screen (NEGATIVE) Urine Methadone Screen (NEGATIVE) Ur Barbiturates Screen (NEGATIVE) Ur Phencyclidine Scrn (NEGATIVE) Ur Amphetamines Screen (NEGATIVE) U Benzodiazepines Scrn (NEGATIVE) U Oth Cocaine Metabols (NEGATIVE) U Cannabinoids Screen (NEGATIVE) 11/02/16 11/02/16 11/02/16 Range/Units 22:36 21:55 21:40 WBC (4.8-10.8) K/uL RBC (4.40-5.90) Mil/uL Hgb (12.0-18.0) g/dL Hct (35.0-51.0) % MCV (80.0-94.0) fL MCH (27.0-31.0) pg MCHC (33.0-37.0) g/dL RDW (11.5-14.5) % Plt Count (130-400) K/uL MPV (7.2-11.7) fL Neut % (Auto) (50.0-75.0) % Lymph % (Auto) (20.0-40.0) % [place] % (Auto) (0.0-10.0) % Eos % (Auto) (0.0-4.0) % Baso % (Auto) (0.0-2.0) % Neut # (1.8-7.0) K/uL Lymph # (1.0-4.3) K/uL Laurel # (0.0-0.8) K/uL Eos # (0.0-0.7) K/uL Baso # (0.0-0.2) K/uL PT 30.2 H* D (9.7-12.2) SECONDS INR 2.6 D APTT 50 H D (21-34) SECONDS Puncture Site pCO2 (35-45) mm/Hg pO2 49 (30-55) mm/Hg HCO3 (21-28) mmol/L ABG pH (7.35-7.45) ABG Total CO2 (22-28) mmol/L ABG O2 Saturation (95-98) % ABG Base Excess (-2.0-3.0) mmol/L ABG Hemoglobin (11.7-17.4) g/dL ABG Carboxyhemoglobin (0.5-1.5) % POC ABG HHb (Measured) (0.0-5.0) % ABG Methemoglobin (0.0-3.0) % Andrew Test ABG Potassium (3.6-5.2) mmol/L VBG pH 6.82 L* (7.32-7.43) VBG pCO2 95 H* (40-60) mmHg VBG HCO3 7.7 mmol/L VBG Total CO2 18.4 L (22-28) mmol/L VBG O2 Sat (Calc) 64.7 (40-65) % VBG Base Excess -20.3 L (0.0-2.0) mmol/L VBG Potassium 5.6 H (3.6-5.2) mmol/L A-a O2 Difference mm/Hg Respiratory Index Hgb O2 Saturation (95.0-98.0) % Sodium 147.0 (132-148) mmol/l Chloride 106.0 (98-107) mmol/L Glucose 222 H (75-110) mg/dl Lactate 16.0 H* (0.7-2.1) mmol/L Mechanical Rate FiO2 % Tidal Volume PEEP Crit Value Called To [facility] nurse daisy Crit Value Called By Carleen browne Crit Value Read Back Y Blood Gas Notified Time 2202 Potassium (3.6-5.2) mmol/L Carbon Dioxide (22-30) mmol/L Anion Gap (10-20) BUN (9-20) mg/dL Creatinine (0.8-1.5) MG/DL Est GFR ( Amer) Est GFR (Non-Af Amer) POC Glucose (mg/dL) 275 H (65-110) mg/dL Random Glucose (75-110) mg/dL Calcium (8.6-10.4) mg/dl Phosphorus (2.5-4.5) mg/dL Magnesium (1.6-2.3) mg/dL Total Bilirubin (0.2-1.3) mg/dL AST (17-59) U/L ALT (21-72) U/L Alkaline Phosphatase (38-126) U/L Total Creatine Kinase (55-170) U/L CK-MB (Mass) Troponin I (0.00-0.120) ng/mL Troponin I, Quant Total Protein (6.3-8.3) g/dL Albumin (3.5-5.0) g/dL Globulin (2.2-3.9) gm/dL Albumin/Globulin Ratio (1.0-2.1) Arterial Blood Potassium (3.6-5.2) mmol/L Venous Blood Potassium 5.6 H (3.6-5.2) mmol/L Urine Opiates Screen (NEGATIVE) Urine Methadone Screen (NEGATIVE) Ur Barbiturates Screen (NEGATIVE) Ur Phencyclidine Scrn (NEGATIVE) Ur Amphetamines Screen (NEGATIVE) U Benzodiazepines Scrn (NEGATIVE) U Oth Cocaine Metabols (NEGATIVE) U Cannabinoids Screen (NEGATIVE) 11/02/16 11/02/1617 Range/Units 20:22 20:22 20:18 WBC 16.8 H (4.8-10.8) K/uL RBC 3.92 L (4.40-5.90) Mil/uL Hgb 11.8 L (12.0-18.0) g/dL Hct 40.6 (35.0-51.0) % MCV 103.5 H D (80.0-94.0) fL MCH 30.1 (27.0-31.0) pg MCHC 29.1 L (33.0-37.0) g/dL RDW 19.8 H (11.5-14.5) % Plt Count 198 (130-400) K/uL MPV 9.8 (7.2-11.7) fL Neut % (Auto) 76.9 H (50.0-75.0) % Lymph % (Auto) 16.5 L (20.0-40.0) % [place]urel % (Auto) 6.4 (0.0-10.0) % Eos % (Auto) 0.0 (0.0-4.0) % Baso % (Auto) 0.2 (0.0-2.0) % Neut # 12.9 H (1.8-7.0) K/uL Lymph # 2.8 (1.0-4.3) K/uL Laurel # 1.1 H (0.0-0.8) K/uL Eos # 0.0 (0.0-0.7) K/uL Baso # 0.0 (0.0-0.2) K/uL PT (9.7-12.2) SECONDS INR APTT (21-34) SECONDS Puncture Site pCO2 (35-45) mm/Hg pO2 42 (30-55) mm/Hg HCO3 (21-28) mmol/L ABG pH (7.35-7.45) ABG Total CO2 (22-28) mmol/L ABG O2 Saturation (95-98) % ABG Base Excess (-2.0-3.0) mmol/L ABG Hemoglobin (11.7-17.4) g/dL ABG Carboxyhemoglobin (0.5-1.5) % POC ABG HHb (Measured) (0.0-5.0) % ABG Methemoglobin (0.0-3.0) % Andrew Test ABG Potassium (3.6-5.2) mmol/L VBG pH < 6.80 L* (7.32-7.43) VBG pCO2 76 H* (40-60) mmHg VBG HCO3 mmol/L VBG Total CO2 (22-28) mmol/L VBG O2 Sat (Calc) 53.7 (40-65) % VBG Base Excess (0.0-2.0) mmol/L VBG Potassium 6.0 H (3.6-5.2) mmol/L A-a O2 Difference mm/Hg Respiratory Index Hgb O2 Saturation (95.0-98.0) % Sodium 142 144.0 (132-148) mmol/l Chloride 109 H 110.0 H (98-107) mmol/L Glucose 118 H (75-110) mg/dl Lactate 12.6 H* (0.7-2.1) mmol/L Mechanical Rate FiO2 % Tidal Volume PEEP Crit Value Called To [facility] nurse daisy Crit Value Called By Carleen browne Crit Value Read Back Y Blood Gas Notified Time 2023 Potassium 5.5 H (3.6-5.2) mmol/L Carbon Dioxide 13 L (22-30) mmol/L Anion Gap 26 H (10-20) BUN 28 H (9-20) mg/dL Creatinine 2.4 H (0.8-1.5) MG/DL Est GFR ( Amer) 32 Est GFR (Non-Af Amer) 26 POC Glucose (mg/dL) (65-110) mg/dL Random Glucose 116 H (75-110) mg/dL Calcium 7.1 L (8.6-10.4) mg/dl Phosphorus 11.8 H (2.5-4.5) mg/dL Magnesium 2.9 H (1.6-2.3) mg/dL Total Bilirubin 1.0 (0.2-1.3) mg/dL AST 634 H D (17-59) U/L ALT 500 H D (21-72) U/L Alkaline Phosphatase 82 (38-126) U/L Total Creatine Kinase 2077 H (55-170) U/L CK-MB (Mass) Troponin I 23.4000 H* (0.00-0.120) ng/mL Troponin I, Quant Total Protein 5.2 L (6.3-8.3) g/dL Albumin 2.4 L (3.5-5.0) g/dL Globulin 2.8 (2.2-3.9) gm/dL Albumin/Globulin Ratio 0.8 L (1.0-2.1) Arterial Blood Potassium (3.6-5.2) mmol/L Venous Blood Potassium 6.0 H (3.6-5.2) mmol/L Urine Opiates Screen (NEGATIVE) Urine Methadone Screen (NEGATIVE) Ur Barbiturates Screen (NEGATIVE) Ur Phencyclidine Scrn (NEGATIVE) Ur Amphetamines Screen (NEGATIVE) U Benzodiazepines Scrn (NEGATIVE) U Oth Cocaine Metabols (NEGATIVE) U Cannabinoids Screen (NEGATIVE) 11/02/16 11/02/16 Range/Units 18:18 17:44 WBC (4.8-10.8) K/uL RBC (4.40-5.90) Mil/uL Hgb (12.0-18.0) g/dL Hct (35.0-51.0) % MCV (80.0-94.0) fL MCH (27.0-31.0) pg MCHC (33.0-37.0) g/dL RDW (11.5-14.5) % Plt Count (130-400) K/uL MPV (7.2-11.7) fL Neut % (Auto) (50.0-75.0) % Lymph % (Auto) (20.0-40.0) % [place] % (Auto) (0.0-10.0) % Eos % (Auto) (0.0-4.0) % Baso % (Auto) (0.0-2.0) % Neut # (1.8-7.0) K/uL Lymph # (1.0-4.3) K/uL [place]urel # (0.0-0.8) K/uL Eos # (0.0-0.7) K/uL Baso # (0.0-0.2) K/uL PT (9.7-12.2) SECONDS INR APTT (21-34) SECONDS Puncture Site pCO2 (35-45) mm/Hg pO2 51 (30-55) mm/Hg HCO3 (21-28) mmol/L ABG pH (7.35-7.45) ABG Total CO2 (22-28) mmol/L ABG O2 Saturation (95-98) % ABG Base Excess (-2.0-3.0) mmol/L ABG Hemoglobin (11.7-17.4) g/dL ABG Carboxyhemoglobin (0.5-1.5) % POC ABG HHb (Measured) (0.0-5.0) % ABG Methemoglobin (0.0-3.0) % Andrew Test ABG Potassium (3.6-5.2) mmol/L VBG pH 6.92 L* (7.32-7.43) VBG pCO2 55 (40-60) mmHg VBG HCO3 7.0 mmol/L VBG Total CO2 13.0 L (22-28) mmol/L VBG O2 Sat (Calc) 72.0 H (40-65) % VBG Base Excess -21.5 L (0.0-2.0) mmol/L VBG Potassium 3.8 (3.6-5.2) mmol/L A-a O2 Difference mm/Hg Respiratory Index Hgb O2 Saturation (95.0-98.0) % Sodium 146.0 (132-148) mmol/l Chloride 121.0 H (98-107) mmol/L Glucose 88 (75-110) mg/dl Lactate 7.6 H* (0.7-2.1) mmol/L Mechanical Rate FiO2 % Tidal Volume PEEP Crit Value Called To Er nurse gemma smyth Crit Value Called By Carleen rt Crit Value Read Back Y Blood Gas Notified Time 1747 Potassium (3.6-5.2) mmol/L Carbon Dioxide (22-30) mmol/L Anion Gap (10-20) BUN (9-20) mg/dL Creatinine (0.8-1.5) MG/DL Est GFR ( Amer) Est GFR (Non-Af Amer) POC Glucose (mg/dL) (65-110) mg/dL Random Glucose (75-110) mg/dL Calcium (8.6-10.4) mg/dl Phosphorus (2.5-4.5) mg/dL Magnesium (1.6-2.3) mg/dL Total Bilirubin (0.2-1.3) mg/dL AST (17-59) U/L ALT (21-72) U/L Alkaline Phosphatase (38-126) U/L Total Creatine Kinase (55-170) U/L CK-MB (Mass) Troponin I (0.00-0.120) ng/mL Troponin I, Quant Total Protein (6.3-8.3) g/dL Albumin (3.5-5.0) g/dL Globulin (2.2-3.9) gm/dL Albumin/Globulin Ratio (1.0-2.1) Arterial Blood Potassium (3.6-5.2) mmol/L Venous Blood Potassium 3.8 (3.6-5.2) mmol/L Urine Opiates Screen Negative (NEGATIVE) Urine Methadone Screen Negative (NEGATIVE) Ur Barbiturates Screen Negative (NEGATIVE) Ur Phencyclidine Scrn Negative (NEGATIVE) Ur Amphetamines Screen Negative (NEGATIVE) U Benzodiazepines Scrn Positive (NEGATIVE) U Oth Cocaine Metabols Negative (NEGATIVE) U Cannabinoids Screen Negative (NEGATIVE) Laboratory Results - last 24 hr 11/02/16 11/02/16 11/02/16 17:44 18:18 20:18 WBC RBC Hgb Hct MCV MCH MCHC RDW Plt Count MPV Neut % (Auto) Lymph % (Auto) [place] % (Auto) Eos % (Auto) Baso % (Auto) Neut # Lymph # [place] # Eos # Baso # PT INR APTT Puncture Site pCO2 pO2 51 42 HCO3 ABG pH ABG Total CO2 ABG O2 Saturation ABG Base Excess ABG Hemoglobin ABG Carboxyhemoglobin POC ABG HHb (Measured) ABG Methemoglobin Andrew Test ABG Potassium VBG pH 6.92 L* < 6.80 L* VBG pCO2 55 76 H* VBG HCO3 7.0 VBG Total CO2 13.0 L VBG O2 Sat (Calc) 72.0 H 53.7 VBG Base Excess -21.5 L VBG Potassium 3.8 6.0 H A-a O2 Difference Respiratory Index Hgb O2 Saturation Sodium 146.0 144.0 Chloride 121.0 H 110.0 H Glucose 88 118 H Lactate 7.6 H* 12.6 H* Mechanical Rate FiO2 Tidal Volume PEEP Crit Value Called To Er nurse gemma smyth [facility] nurse daisy Crit Value Called By Carleen rt Carleen rt Crit Value Read Back Y Y Blood Gas Notified Time 1747 2023 Potassium Carbon Dioxide Anion Gap BUN Creatinine Est GFR ( Amer) Est GFR (Non-Af Amer) POC Glucose (mg/dL) Random Glucose Calcium Phosphorus Magnesium Total Bilirubin AST ALT Alkaline Phosphatase Total Creatine Kinase CK-MB (Mass) Troponin I Troponin I, Quant Total Protein Albumin Globulin Albumin/Globulin Ratio Arterial Blood Potassium Venous Blood Potassium 3.8 6.0 H Urine Opiates Screen Negative Urine Methadone Screen Negative Ur Barbiturates Screen Negative Ur Phencyclidine Scrn Negative Ur Amphetamines Screen Negative U Benzodiazepines Scrn Positive U Oth Cocaine Metabols Negative U Cannabinoids Screen Negative 11/02/16 11/02/16 11/02/16 20:22 20:22 21:40 WBC 16.8 H RBC 3.92 L Hgb 11.8 L Hct 40.6 MCV 103.5 H D MCH 30.1 MCHC 29.1 L RDW 19.8 H Plt Count 198 MPV 9.8 Neut % (Auto) 76.9 H Lymph % (Auto) 16.5 L [place] % (Auto) 6.4 Eos % (Auto) 0.0 Baso % (Auto) 0.2 Neut # 12.9 H Lymph # 2.8 [place] # 1.1 H Eos # 0.0 Baso # 0.0 PT INR APTT Puncture Site pCO2 pO2 HCO3 ABG pH ABG Total CO2 ABG O2 Saturation ABG Base Excess ABG Hemoglobin ABG Carboxyhemoglobin POC ABG HHb (Measured) ABG Methemoglobin Andrew Test ABG Potassium VBG pH VBG pCO2 VBG HCO3 VBG Total CO2 VBG O2 Sat (Calc) VBG Base Excess VBG Potassium A-a O2 Difference Respiratory Index Hgb O2 Saturation Sodium 142 Chloride 109 H Glucose Lactate Mechanical Rate FiO2 Tidal Volume PEEP Crit Value Called To Crit Value Called By Crit Value Read Back Blood Gas Notified Time Potassium 5.5 H Carbon Dioxide 13 L Anion Gap 26 H BUN 28 H Creatinine 2.4 H Est GFR ( Amer) 32 Est GFR (Non-Af Amer) 26 POC Glucose (mg/dL) 275 H Random Glucose 116 H Calcium 7.1 L Phosphorus 11.8 H Magnesium 2.9 H Total Bilirubin 1.0 AST 634 H D ALT 500 H D Alkaline Phosphatase 82 Total Creatine Kinase 2077 H CK-MB (Mass) Troponin I 23.4000 H* Troponin I, Quant Total Protein 5.2 L Albumin 2.4 L Globulin 2.8 Albumin/Globulin Ratio 0.8 L Arterial Blood Potassium Venous Blood Potassium Urine Opiates Screen Urine Methadone Screen Ur Barbiturates Screen Ur Phencyclidine Scrn Ur Amphetamines Screen U Benzodiazepines Scrn U Oth Cocaine Metabols U Cannabinoids Screen 11/02/16 11/02/16 11/02/16 21:55 22:36 22:40 WBC RBC Hgb Hct MCV MCH MCHC RDW Plt Count MPV Neut % (Auto) Lymph % (Auto) [place] % (Auto) Eos % (Auto) Baso % (Auto) Neut # Lymph # [place] # Eos # Baso # PT 30.2 H* D INR 2.6 D APTT 50 H D Puncture Site Rba pCO2 50 H pO2 49 280 H HCO3 11.3 L ABG pH 7.03 L* ABG Total CO2 14.7 L ABG O2 Saturation 99.5 H ABG Base Excess -17.5 L ABG Hemoglobin ABG Carboxyhemoglobin POC ABG HHb (Measured) ABG Methemoglobin Andrew Test N/a ABG Potassium 5.0 VBG pH 6.82 L* VBG pCO2 95 H* VBG HCO3 7.7 VBG Total CO2 18.4 L VBG O2 Sat (Calc) 64.7 VBG Base Excess -20.3 L VBG Potassium 5.6 H A-a O2 Difference 157.0 Respiratory Index 0.6 Hgb O2 Saturation Sodium 147.0 149.0 H Chloride 106.0 110.0 H Glucose 222 H 297 H Lactate 16.0 H* 15.6 H* Mechanical Rate 20 FiO2 70.0 Tidal Volume 500 PEEP 5 Crit Value Called To [facility] nurse daisy [place] Crit Value Called By Carleen rt Carleen tadeo Crit Value Read Back Y Y Blood Gas Notified Time 2202 2247 Potassium Carbon Dioxide Anion Gap BUN Creatinine Est GFR ( Amer) Est GFR (Non-Af Amer) POC Glucose (mg/dL) Random Glucose Calcium Phosphorus Magnesium Total Bilirubin AST ALT Alkaline Phosphatase Total Creatine Kinase CK-MB (Mass) Troponin I Troponin I, Quant Total Protein Albumin Globulin Albumin/Globulin Ratio Arterial Blood Potassium 5.0 Venous Blood Potassium 5.6 H Urine Opiates Screen Urine Methadone Screen Ur Barbiturates Screen Ur Phencyclidine Scrn Ur Amphetamines Screen U Benzodiazepines Scrn U Oth Cocaine Metabols U Cannabinoids Screen 11/03/16 11/03/16 11/03/16 04:16 04:16 04:16 WBC 9.0 RBC 3.46 L Hgb 10.5 L Hct 34.9 L MCV 100.8 H D MCH 30.3 MCHC 30.1 L RDW 18.9 H Plt Count 86 L D MPV 10.0 Neut % (Auto) 79.3 H Lymph % (Auto) 15.6 L [place] % (Auto) 4.9 Eos % (Auto) 0.0 Baso % (Auto) 0.2 Neut # 7.2 H Lymph # 1.4 Laurel # 0.4 Eos # 0.0 Baso # 0.0 PT 38.8 H* D INR 3.3 APTT 39 H D Puncture Site pCO2 pO2 HCO3 ABG pH ABG Total CO2 ABG O2 Saturation ABG Base Excess ABG Hemoglobin ABG Carboxyhemoglobin POC ABG HHb (Measured) ABG Methemoglobin Andrew Test ABG Potassium VBG pH VBG pCO2 VBG HCO3 VBG Total CO2 VBG O2 Sat (Calc) VBG Base Excess VBG Potassium A-a O2 Difference Respiratory Index Hgb O2 Saturation Sodium Cancelled Chloride Cancelled Glucose Lactate Mechanical Rate FiO2 Tidal Volume PEEP Crit Value Called To Crit Value Called By Crit Value Read Back Blood Gas Notified Time Potassium Cancelled Carbon Dioxide Cancelled Anion Gap Cancelled BUN Cancelled Creatinine Cancelled Est GFR ( Amer) Cancelled Est GFR (Non-Af Amer) Cancelled POC Glucose (mg/dL) Random Glucose Cancelled Calcium Cancelled Phosphorus Cancelled Magnesium Cancelled Total Bilirubin Cancelled AST Cancelled ALT Cancelled Alkaline Phosphatase Cancelled Total Creatine Kinase Cancelled CK-MB (Mass) Cancelled Troponin I Troponin I, Quant Cancelled Total Protein Cancelled Albumin Cancelled Globulin Cancelled Albumin/Globulin Ratio Cancelled Arterial Blood Potassium Venous Blood Potassium Urine Opiates Screen Urine Methadone Screen Ur Barbiturates Screen Ur Phencyclidine Scrn Ur Amphetamines Screen U Benzodiazepines Scrn U Oth Cocaine Metabols U Cannabinoids Screen 11/03/16 11/03/16 11/03/16 04:20 04:46 05:28 WBC RBC Hgb Hct MCV MCH MCHC RDW Plt Count MPV Neut % (Auto) Lymph % (Auto) Laurel % (Auto) Eos % (Auto) Baso % (Auto) Neut # Lymph # [place]urel # Eos # Baso # PT INR APTT Puncture Site Rb pCO2 49 H pO2 113 H HCO3 16.9 L ABG pH 7.17 L* ABG Total CO2 19.4 L ABG O2 Saturation 98.2 H ABG Base Excess -10.3 L ABG Hemoglobin 10.5 L ABG Carboxyhemoglobin 1.1 POC ABG HHb (Measured) 1.8 ABG Methemoglobin 0.9 Andrew Test Na ABG Potassium VBG pH VBG pCO2 VBG HCO3 VBG Total CO2 VBG O2 Sat (Calc) VBG Base Excess VBG Potassium A-a O2 Difference 325.0 Respiratory Index 2.9 Hgb O2 Saturation 96.2 Sodium 145 145 Chloride 98 99 Glucose Lactate Mechanical Rate 20 FiO2 70.0 Tidal Volume 500 PEEP 5 Crit Value Called To Daisy rao/rn concurrent review Crit Value Called By Pasha lamas/rt Crit Value Read Back Y Blood Gas Notified Time 430 Potassium 4.4 4.7 Carbon Dioxide 21 L 21 L Anion Gap 30 H 30 H BUN 34 H 34 H Creatinine 2.4 H 2.3 H Est GFR ( Amer) 32 34 Est GFR (Non-Af Amer) 26 28 POC Glucose (mg/dL) Random Glucose 502 H* D 498 H* Calcium 6.5 L 6.5 L Phosphorus 10.2 H Magnesium 2.6 H Total Bilirubin 1.1 1.1 AST 5409 H 6143 H ALT 3745 H 4053 H Alkaline Phosphatase 78 79 Total Creatine Kinase 1543 H CK-MB (Mass) 24.1 H Troponin I Troponin I, Quant 16.8000 H* Total Protein 4.4 L 4.4 L Albumin 2.2 L 2.2 L Globulin 2.2 2.2 Albumin/Globulin Ratio 1.0 1.0 Arterial Blood Potassium Venous Blood Potassium Urine Opiates Screen Urine Methadone Screen Ur Barbiturates Screen Ur Phencyclidine Scrn Ur Amphetamines Screen U Benzodiazepines Scrn U Oth Cocaine Metabols U Cannabinoids Screen 11/03/16 11/03/16 07:50 12:08 WBC RBC Hgb Hct MCV MCH MCHC RDW Plt Count MPV Neut % (Auto) Lymph % (Auto) Laurel % (Auto) Eos % (Auto) Baso % (Auto) Neut # Lymph # [place] # Eos # Baso # PT INR APTT Puncture Site Lra pCO2 45 pO2 116 H HCO3 30.0 H ABG pH 7.45 ABG Total CO2 32.7 H ABG O2 Saturation 98.2 H ABG Base Excess 6.4 H ABG Hemoglobin ABG Carboxyhemoglobin POC ABG HHb (Measured) ABG Methemoglobin Andrew Test Pos ABG Potassium 4.3 VBG pH VBG pCO2 VBG HCO3 VBG Total CO2 VBG O2 Sat (Calc) VBG Base Excess VBG Potassium A-a O2 Difference 220.0 Respiratory Index 1.9 Hgb O2 Saturation Sodium 153.0 H Chloride 108.0 H Glucose 230 H Lactate 13.0 H* Mechanical Rate 16 FiO2 55.0 Tidal Volume 550 PEEP 5 Crit Value Called To Dr torrez Crit Value Called By Dagoberto honeycutt tube operator Crit Value Read Back Y Blood Gas Notified Time 1211 Potassium Carbon Dioxide Anion Gap BUN Creatinine Est GFR ( Amer) Est GFR (Non-Af Amer) POC Glucose (mg/dL) 436 H* Random Glucose Calcium Phosphorus Magnesium Total Bilirubin AST ALT Alkaline Phosphatase Total Creatine Kinase CK-MB (Mass) Troponin I Troponin I, Quant Total Protein Albumin Globulin Albumin/Globulin Ratio Arterial Blood Potassium 4.3 Venous Blood Potassium Urine Opiates Screen Urine Methadone Screen Ur Barbiturates Screen Ur Phencyclidine Scrn Ur Amphetamines Screen U Benzodiazepines Scrn U Oth Cocaine Metabols U Cannabinoids Screen EKG/Cardiology Studies: Cardiology / EKG Studies 11/02/16 20:52 EKG [ELECTROCARDIOGRAM] Stat Comment: Mode Of Transportation: Reason For Exam: elevated torponin, shock Fingerstick Blood Sugar Results: 226
[2016-11-03 14:49] VITALS: BP 152/97; PULSE 128; RESP 0
[2016-11-03] MEDS ORDERED: (Lantus) Insulin Glargine, Recombinant SC SCH (22:00)
--- NOTE | 2016-11-06 19:06 | CARD ---
APPROVED REPORT EKG Measurement Heart [id number] <Conclusion> Sinus tachycardia Left axis deviation Abnormal ECG
--- NOTE | 2016-11-28 10:57 | DS ---
This is a 76-year-old male who was brought to the Emergency Room with history of unresponsiveness and difficulty in breathing. EMS were called by the sister. EMT noted the patient's breathing shallowl y and has vomiting. The patient was intubated in the field and sent to the Emergency Room. PAST MEDICAL HISTORY: HIV positive, cholecystectomy, TURP, suprapubic catheter placement in 06/2016. MEDICATIONS: Reviewed. HOSPITAL COURSE: The patient was admitted to ICU with acute respiratory failure. Septic shock. Acu te renal failure. During the hospital course, the patient remained intubated on respirator with zahra re metabolic acidosis. The patient remained hypotensive and was on vasopressor medications. No impr ovement was noted in the patient's condition. The patient was in acute renal and respiratory failure . The patient's troponins were also positive. The patient was coded 2 times because of cardiac arre st. The patient was unable to come back. The patient . FINAL DIAGNOSES: Acute respiratory failure. Septic shock. Acute renal failure. Bilateral pneumoni a. Human immunodeficiency virus positive. Possible small acute strokes. Max Boykin MD cc: [phone] TT: 11/28/2016 10:56:50 co
== END 2016-11-03 13:50 | DRG 974 ==
LOC: C.ER 14:28 → C.9E 17:05 → C.9I 17:54
PROVIDERS: ADMIT Internal Medicine; ATTEND Internal Medicine
PROC: 5A1945Z Respiratory Ventilation, 24-96 Consecutive Hours (ICD-10-PCS; principal; 2016-11-02)
DX: A41.9 Sepsis, unspecified organism (principal); R65.21 Severe sepsis with septic shock; B20 Human immunodeficiency virus [HIV] disease; F03.90 Unspecified dementia, unspecified severity, without behavioral disturbance, psychotic disturbance, mood disturbance, and anxiety; J96.00 Acute respiratory failure, unspecified whether with hypoxia or hypercapnia; N39.0 Urinary tract infection, site not specified; E87.2 Acidosis; E86.0 Dehydration; N17.9 Acute kidney failure, unspecified; Z79.899 Other long term (current) drug therapy; Z86.73 Personal history of transient ischemic attack (TIA), and cerebral infarction without residual deficits; Z87.891 Personal history of nicotine dependence